=== PATIENT | female | born 1970 | race Caucasian/White ===

== ENCOUNTER 2022-02-16 12:01 | Emergency (ER) | payer BC, SELFPAY ==
[2022-02-16 12:14] VITALS: BP 144/106; PULSE 97; RESP 20; TEMP 36.7; O2SAT 96
--- NOTE | 2022-02-16 12:35 | W.ED.EXTPRO ---
HPI - Extremity Problem General: Chief complaint: Extremity Injury, Upper Stated complaint: Arm and should pain on left side Time Seen by Provider: 02/16/22 12:35 Source: patient Mode of arrival: ambulatory History of Present Illness: 51-year-old female presents to the emergency room with her . Evidently she recently traveled [facility] from [place]. She does not speak Malaysian. One of our nurses is [place] Citizen-speaking and provided translation for us. She has pain in the shoulder this has been ongoing for months. Pain is worse range of motion in the shoulder. She is taken [id number] medications for it with minimal relief MD Complaint: extremity pain Onset (ago): month(s) Pain Consistency: intermittent Location: left Quality: sharp Radiation: distal Relieving factors: rest Exacerbating factors: range of motion and palpation Associated symptoms: Deny arthralgias, chest pain, fever(s), myalgias, rash or short of breath Review of Systems Const: Denies: fever(s) or chills ENMT: Denies: throat pain, ear or mastoid pain, nasal discharge or nasal congestion Card: Denies: chest pain Resp: Denies: dyspnea, productive cough or non-productive cough GI: Denies: abdominal pain, nausea, vomiting, hematemesis, coffee ground emesis, diarrhea, constipation, bloating, hematochezia or melena : Denies: flank pain, difficulty voiding, dysuria, urinary frequency or urinary urgency Skin/Breast: Denies: rash or pruritus [facility] ED PFSH: Medical History (Updated 02/27/22 @ 08:02 by Adarsh Greenberg DO) No significant past medical history Surgical History (Updated 02/27/22 @ 08:02 by Adarsh Greenberg DO) No significant past surgical history Physical Exam Const: GENERAL APPEARANCE: cooperative and comfortable ORIENTATION/CONSCIOUSNESS: Yes awake, Yes oriented to person, Yes oriented to place and Yes oriented to time HENMT: COMMON NORMALS: normocephalic, atraumatic, hearing grossly normal bilaterally, external ears normal, EAC's normal, TM's normal bilaterally, Normal nasal mucous membranes and turbinates present, moist oral mucous membranes and oropharynx normal HEAD & SCALP: normocephalic and atraumatic NOSE: Normal nasal mucous membranes and turbinates present EXTERNAL EAR: Yes external ears normal EXTERNAL AUDITORY CANAL: EAC's normal TYMPANIC MEMBRANE: TM's normal bilaterally Eye: COMMON NORMALS: Equal, round and reactive pupils present, EOMs intact bilaterally, conjunctivae normal and no scleral icterus CONJUNCTIVA: Yes conjunctivae normal PUPIL: Yes Equal, round and reactive pupils present Neck/C-Spine: COMMON NORMALS: full ROM, no lymphadenopathy, supple and no JVD Resp: COMMON NORMALS: normal respiratory effort, No retractions, No use of accessory muscles and clear to auscultation bilaterally AUSCULTATION: clear to auscultation bilaterally Cardio: COMMON NORMALS: no JVD, regular rate, regular rhythm and No murmurs present (Cardio) RATE: regular rate RHYTHM: regular rhythm GI: COMMON NORMALS: Soft to palpation and No hepatosplenomegaly present AUSCULTATION: Yes normoactive bowel sounds PALPATION: Yes Soft to palpation, No Tenderness to palpation present (GI), No Guarding due to palpation present (GI) and Yes No hepatosplenomegaly present Extremity: COMMON NORMALS: normal to inspection, capillary refill normal, no clubbing, cyanosis or edema, no calf tenderness and no pedal edema OTHER: Neurovascular intact D10 reflexes +2/4 at biceps triceps and brachioradialis. Pain exacerbated by range of motion at the shoulder and at the neck with a negative Spurling sign Neuro: SENSORIUM/ORIENTATION: Yes oriented to person, Yes oriented to place and Yes oriented to time Skin: COMMON NORMALS: no rashes or lesions noted GENERAL SKIN EXAM: no rashes or lesions noted Course Vital Signs: Vital signs: Vital Signs Temperature 98.0 F 02/16/22 12:14 Pulse Rate 54 L 02/16/22 14:26 Respiratory Rate 16 02/16/22 14:26 Blood Pressure 130/81 02/16/22 14:26 Pulse Oximetry 97 02/16/22 14:26 Oxygen Delivery Me thod 02/16/22 12:14 MDM - Extremity (Nontraumatic) Medical Decision Making She describes the pain is radiating out of the neck down through the arm across the shoulder. Sounds mostly like a cervical radicular symptoms. We will put her on a prednisone burst and taper her Lyrica tizanidine and diclofenac as needed and set her up to see orthopedic spine surgery. Medical Records I reviewed the patient's medical records. Lab Data I reviewed the patient's lab results. Radiology Impressions Cervical Spine X-Ray 02/16/22 12:50 IMPRESSION: 1. No acute fracture or malalignment. 2. Straightening and degenerative changes. Shoulder X-Ray 02/16/22 12:50 IMPRESSION: Negative left shoulder. Discharge Plan Discharge Patient Disposition: Home Clinical Impression: Cervical radicular pain Condition: Stable Prescriptions: New hydrocodone-acetaminophen 5-325 mg tablet 1 tab PO Q6H PRN (Reason: pain) Qty: 10 0RF prednisone 20 mg tablet 20 mg PO TID Qty: 15 0RF Rx Instructions: 1 p.o. 3 times daily x3 days, 1 p.o. twice daily x2 days, 1 p.o. daily x2 days diclofenac sodium 75 mg tablet,delayed release (DR/EC) 75 mg PO Q12H PRN (Reason: pain) Qty: 20 0RF tizanidine 4 mg tablet 4 mg PO Q6H PRN (Reason: muscle spasticity) Qty: 20 0RF Rx Instructions: do not exceed 3 doses per 24 hrs Lyrica 75 mg capsule 75 mg PO BID Qty: 60 0RF Discharge Orders: Discharge ED (Routine); Ordered 02/16/22 Ordered By: Adarsh Greenberg Discharge Diet: Usual diet Discharge Activity: Limit activity as instructed Patient Instructions: Opioid Safety, Pain Management Activity Restrictions/Additional Instructions: Avoid heavy lifting minimal use of the left arm. No working above shoulder level. Case management make arrangements for an outpatient MRI and consultation with orthopedic surgery. Coding Level of Care Code ED Resident Program Specialist for [place]
--- NOTE | 2022-02-16 12:50 | XR_ITS ---
WS: [id number] Exam: XR shoulder LT min 2V* [id number] Date/Time of Exam: 02/16/2022 1:04 PM Reason For Exam: pain The projections of the shoulder reveal no fractures, anomalies, soft tissue swelling, or calcificatio ns. There is normal bony alignment. No irregularity of the bony architecture is noted. XR/XR shoulder LT min 2V* [id number] IMPRESSION: Negative left shoulder.
--- NOTE | 2022-02-16 12:50 | XR_ITS ---
WS: [id number] Exam: XR cervical spine 3V* [id number] Date/Time of Exam: 02/16/2022 1:04 PM Reason For Exam: pain No acute fracture or dislocation. There is straightening. Mild spondylosis from C4 to C6. Normal para spinal soft tissues. The odontoid is intact. XR/XR cervical spine 3V* [id number] IMPRESSION: 1. No acute fracture or malalignment. 2. Straightening and degenerative changes.
[2022-02-16 13:34] VITALS: RESP 16
[2022-02-16] MEDS: orphenadrine 30 mg/mL Inj 2 mL 60 MG IVP (13:34)
[2022-02-16] MEDS: morphine 4 mg/mL SDV 1 mL IVP (13:34)
[2022-02-16] MEDS: sodium chloride 0.9% (100 ml) 100 ML (13:34)
--- NOTE | 2022-02-16 13:34 | ECG_ITS ---
[facility] Test Date: 2022-02-16 Pat Name: Melva Colon Department: Room: Gender: Female Memorial Designer: : 1970 Requested By: Adarsh Jimenez Order Number: [id number] Reading MD: Nargis Harris M.D. Measurements Intervals [place] Rate: 52 P: 44 WI: 159 QRS: -52 QRSD: 101 T: 55 QT: 418 QTc: 392 Interpretive Statements SINUS BRADYCARDIA LEFT ANTERIOR FASCICULAR BLOCK [QRS AXIS <= -45, QR IN I, RS IN II] No previous ECG available for comparison Electronically Signed On 02-16-2022 22:53:30 CDT by Nargis Harris M.D. [id number]
[2022-02-16] MEDS: ketorolac 30 mg/mL INJ IVP (13:35)
[2022-02-16] MEDS: dexamethasone 10 mg/mL INJ IVP (13:35)
[2022-02-16 14:26] VITALS: BP 130/81; PULSE 54; RESP 16; O2SAT 97
--- NOTE | 2022-02-27 09:36 | DCPLANNER ---
Addendum entered by Shannan Montes 04/15/22 15:22: Patient had a follow up appointment scheduled with ortho - patient did attend appointment. Addendum entered by Shannan Montes 03/05/22 17:09: Patient has a follow up appointment scheduled for , March 12, 2022 at 10:[address] Cabrera at ortho. Clinic will call patient with appointment information. Original Note: condominium property manager had message to schedule a follow up appointment for patient with ortho. condominium property manager sent patients information to the front office staff at ortho. Patients information will be printed and reviewed. Clinic will call patient with appointment information.
== END 2022-02-16 14:35 | disposition home or self-care (01) ==
PROVIDERS: Emergency Provider Family Medicine
DX: M54.12 Radiculopathy, cervical region (principal)
CPT/HCPCS: 72040; 73030; 93005; 96361; 96374; 96375; 99284; J1100; J1885; J2270; J2360

== ENCOUNTER → 2022-03-12 09:19 | Outpatient (BNVA) | payer BC, SELFPAY | PROVIDERS: Referring Provider Family Medicine; Visit Provider Orthopaedic Surgery | DX: M47.22 Other spondylosis with radiculopathy, cervical region (principal) | CPT/HCPCS: 72040 ==

== ENCOUNTER 2022-05-08 10:47 | Outpatient (CLI) | payer BC, SELFPAY ==
--- NOTE | 2022-05-08 11:00 | MR_ITS ---
WS: [id number] MRI CERVICAL SPINE NONCONTRAST HISTORY: neck pain COMPARISON: 03/20/2022 Technique: Multiplanar, multisequence noncontrast imaging of the cervical spine. Straightening and slight reversal of the cervical spine. Reversal centered at C6. Signal within the cervical cord is normal. Visualized posterior fossa is unremarkable. Craniocervical junction, C1 and C2 relationship, odontoid process and soft tissues are normal. C2-C3: Normal. C3-C4: Small central disc protrusion and mild osteophytic ridging. Mild RIGHT foraminal stenosis. C4-C5: Normal. C5-C6: Mild annular disc bulging and osteophytic ridging. Slightly greater osteophyte in the RIGHT fo ramen. Very mild encroachment upon the ventral thecal sac and very small mild foraminal stenosis. C6-C7: Beginning posterior and to the LEFT of the C6 vertebral body and extending over length of 14 m m is either RIGHT disc protrusion or osteophyte encroaching upon the LEFT lateral thecal sac and prox imal foramen. This was also present on the prior study of 03/20/2022. Most significant contact is pro bably on the C7 nerve root. C7-T1: Normal. Paraspinal soft tissue are normal. MR/MR cervical spin wo con* [id number] IMPRESSION: 1. Focal area of stenosis and significant encroachment upon the C7 nerve root on the LEFT. There is significant contact on the LEFT cervical cord and foramin a at C6-7 with displacement of the nerve roots. This is either a disc extrusion which has migrated cephalad from the C6-7 disc level or opacification along th e posterior longitudinal ligament. Consider ossification of the posterior longi tudinal ligament. Very similar to the prior study from 03/20/2022. 2. Mild foraminal stenosis at C5-6. 3. Mild RIGHT foraminal stenosis at C3-4.
== END 2022-05-08 10:48 | disposition home or self-care (01) ==
LOC: RAD 10:51
PROVIDERS: PCP Family Medicine; Visit Provider Orthopaedic Surgery
DX: M48.02 Spinal stenosis, cervical region (principal)
CPT/HCPCS: 72141

== ENCOUNTER 2022-05-27 10:34 | Outpatient (CLI) | payer BC, SELFPAY ==
--- NOTE | 2022-05-27 10:57 | MR_ITS ---
WS: [id number] MRI NECK WITH CONTRAST TECHNIQUE: Noncontrast axial T1, axial T2 FSE fat sat, coronal T2 fat sat, coronal T1, coronal T1 fat sat, sagittal T2 fat sat, plus contrast enhanced coronal, sagittal, and axial T1 fat sat images obta ined. CLINICAL INFORMATION: CYST MUCOCELE OF NOSE NASAL SINUS/JAW PAIN COMPARISON: None. FINDINGS: Normal posterior nasopharynx. Normal parapharyngeal fat. Normal parotid glands and submandibular glan ds. Mild mucosal thickening ethmoid air cells. Mastoid air cells are well aerated. Normal posterior f claire. Normal vascular flow voids at the skull base. Tongue base appears normal. Dental artifact degrades images in the anterior mandible and maxilla. Evidence of prior postoperative changes partial RIGHT maxillary resection. No evidence of drainable fluid collection or abscess. No evidence of osteomyelitis considering limitations. Small shallow central protrusions C5-C6 and C6-C7 with slight effacement of the ventral thecal sac. Normal optic chiasm and pituitary infundibulum. No cervical lymphadenopathy. Visualized intracranial contents appear normal.No abnormal gadolinium enhancement. Normal pituitary enhancement. Normal patience nous sinuses and Meckel's cave. MR/MR orbit face neck wo/w* [id number] IMPRESSION: 1. Mild mucosal thickening ethmoid air cells. Mild mucosal thickening LEFT max illary sinus. Sphenoid sinuses are well aerated. Mastoid air cells well aerated . 2. Dental artifact degrades images in the maxilla and mandible. No evidence of drainable abscess or fluid collection. Evidence of prior RIGHT maxillary resec tion. No evidence of osteomyelitis. 3. Normal salivary glands. 4. No cervical lymphadenopathy. 5. No other suspicious findings. 6. Small disc protrusions in the cervical spine at C5-C6 and C6-C7 with slight effacement of ventral thecal sac. Cord signal is normal.
[2022-05-27] MEDS: gadobenate dimeglumine 20 mL vial IV (11:26)
== END 2022-05-27 10:35 | disposition home or self-care (01) ==
PROVIDERS: PCP Family Medicine; Visit Provider Specialist
DX: J34.1 Cyst and mucocele of nose and nasal sinus (principal)
CPT/HCPCS: 70543; A9577

== ENCOUNTER 2022-06-28 17:21 | Emergency (ER) | payer BC, SELFPAY ==
[2022-06-28 17:52] VITALS: BP 164/97; PULSE 76; RESP 16; TEMP 36.5; O2SAT 95; BMI 31.8
[2022-06-28 20:04] VITALS: BP 148/88; PULSE 60; RESP 12; O2SAT 98
--- NOTE | 2022-06-28 21:29 | W.ED.GENADLT ---
HPI - General Adult General: Chief complaint: General Medical Stated complaint: chills,sinus issues Time Seen by Provider: 06/28/22 21:02 Source: patient, family and irish moss bleacher (phone used as interpeter) History of Present Illness: 52-year-old female who presents with left maxillary sinus pain. The patient has chronic recurrent sinus infections related to a dental procedure that was done in [place] 1 year ago. There reportedly is a open passageway to the sinus that causes her to get recurrent infections. She finished clindamycin 2 days ago without improvement. She has been referred by her dentist to the oral maxillofacial surgeon in [place] but that appointment is not anytime soon. She presents today because of worsening pain. No fever. She is requesting ketoprofen and a stronger antibiotic. Review of Systems Narrative: see HPI [facility] ED PFSH: Medical History No significant past medical history Surgical History No significant past surgical history Social History (Updated 06/11/22 @ 09:14 by Yessica Rojas LPN) Smoking and tobacco status: current every day smoker e-cigarettes E-Cigarette Details: with nicotine E-cig/vape details: 2.5 Alcohol intake: never Physical Exam Const: OTHER: Patient is in mild distress due to the discomfort. HENMT: FACE & SINUS: Facial tenderness on exam of face and sinuses on the left maxilla TYMPANIC MEMBRANE: TM normal on the right and TM normal on the left TEETH & GINGIVA IMAGES: 1. [address] in the left upper maxilla 2. Tenderness in the maxillary ridge region. Neck/C-Spine: OTHER: Neck supple, no lymphadenopathy. Resp: OTHER: Patient is in no respiratory distress Neuro: OTHER: Alert and oriented, moves all extremities, speaks Argentine but phone irish moss bleacher used Course Vital Signs: Vital signs: Vital Signs Temperature 97.7 F 06/28/22 17:52 Pulse Rate 76 06/28/22 17:52 Respiratory Rate 16 06/28/22 17:52 Blood Pressure 164/97 06/28/22 17:52 Pulse Oximetry 95 06/28/22 17:52 Oxygen Delivery Me thod 06/28/22 17:52 [facility] - General Adult Medical Decision Making 52-year-old female with chronic recurrent left maxillary sinusitis due to a dental procedure. She is scheduled to see oral maxillofacial surgery in the near future. Just finished clindamycin. Ongoing pain and suspected ongoing infection. Patient's been given Levaquin 750 p.o. in the ER. She is also been given 60 mg of Toradol IM. Plan for discharge home on Levaquin 750 daily x10 days. I am also going to give her Toradol to take every 6 hours as needed for pain. I have encouraged her to follow-up as soon as possible with the oral maxillofacial surgeon. Discharge Plan Discharge Patient Disposition: Home Clinical Impression: Chronic maxillary sinusitis Condition: Stable Prescriptions: New levofloxacin 750 mg tablet 750 mg PO DAILY 10 Days Qty: 10 0RF ketorolac 10 mg tablet 10 mg PO Q6H PRN (Reason: pain) Qty: 40 0RF No Action diclofenac sodium 75 mg tablet,delayed release (DR/EC) 75 mg PO Q12H PRN (Reason: pain) Qty: 20 0RF tizanidine 4 mg tablet 4 mg PO Q6H PRN (Reason: muscle spasticity) Qty: 20 0RF Rx Instructions: do not exceed 3 doses per 24 hrs hydrocodone-acetaminophen 5-325 mg tablet 1 tab PO Q6H PRN (Reason: pain) 7 Days Qty: 40 0RF doxycycline hyclate 100 mg tablet,delayed release (DR/EC) 100 mg PO DAILY azithromycin 500 mg tablet 500 mg PO DAILY ibuprofen 200 mg tablet 200 mg PO Q6H PRN acetaminophen [Tylenol Extra Strength] 500 mg tablet 500 mg PO Q6H PRN Lyrica 75 mg capsule 75 mg PO BID Qty: 60 2RF tizanidine 4 mg tablet 4 mg PO BID PRN (Reason: muscle spasticity) Qty: 60 2RF Discharge Orders: Discharge ED (Routine); Ordered 06/28/22 Ordered By: Maral Pierce Referrals: Roberto Lomeli MD [Primary Care Provider] - Discharge Diet: Advance as tolerated Discharge Activity: Increase activity as tolerated Patient Instructions: Pain Management, Sinusitis - Chronic Activity Restrictions/Additional Instructions: Take the medications as prescribed. Make sure you take the ketorolac with food. Follow-up first available with the oral maxillofacial surgeon Coding Level of Care Code ED Furnace Combination Analyst for [place]
[2022-06-28] MEDS: ketorolac 60 mg/2 mL INJ IM (21:43)
[2022-06-28] MEDS: levoFLOXacin 750 mg Tablet PO (21:43)
== END 2022-06-28 22:03 | disposition home or self-care (01) ==
PROVIDERS: Emergency Provider Emergency Medicine; PCP Family Medicine
DX: J32.0 Chronic maxillary sinusitis (principal)
CPT/HCPCS: 96372; 99284; J1885

== ENCOUNTER 2022-07-04 21:40 | Emergency (ER) | payer BC, SELFPAY ==
[2022-07-04 21:47] VITALS: BP 177/96; PULSE 67; RESP 14; TEMP 36.4; O2SAT 97; BMI 31.8
--- NOTE | 2022-07-04 21:57 | W.ED.GENADLT ---
HPI - General Adult General: Chief complaint: General Medical Stated complaint: facial swelling, pain Time Seen by Provider: 07/04/22 21:48 Source: patient and family () Mode of arrival: ambulatory Limitations: language barrier History of Present Illness: Patient is a 52-year-old female who presents to the ED today along with her for evaluation of chronic left maxillary pain. There is certainly a language barrier present as patient does not speak any Moroccan nor does the speak much Trinidadian so most of the examination and history is performed using the help of interpretation apps on her phone. Essentially she tells me that several years ago she ended up having several dental extractions in [place] that became infected and spread into her left maxillary sinus. 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 She states since then she will get inflammation and edema in her sinuses and is often put on antibiotics for sinusitis. Patient states she has recently completed rounds of Clindamycin and Levaquin and still complains of pain. She was seen here at our facility about a week ago. Patient states after her discharge here she went to [facility] in [place] and was seen and had a CT facial bones with contrast which showed a discontinuity in the posterior wall of her left maxillary sinus that could represent chronic fracture. Patient states in the past she has had multiple evaluations for her symptoms including multiple ENT evaluations, oral maxillary surgery, neurology, etc. She has appointment with oral maxillary surgery later this month. Onset (ago): year(s) Location: face Severity: severe Quality: burning Pain Consistency: constant Relieving factors: none Exacerbating factors: other (chewing, palpation, talking) Associated symptoms: Reports no associated symptoms; Deny chest pain, dyspnea, headache(s) or malaise Review of Systems Const: Denies: fever(s), chills, body aches, fatigue or malaise Eyes: Denies: change in vision, blurry vision, photophobia, floaters or seeing flashes ENMT: Reports: sinus pain; Denies: throat pain, odynophagia, nasal discharge, nasal congestion or post nasal drip Card: Denies: chest pain Resp: Denies: dyspnea Musc: Denies: neck pain Neuro: Denies: headache(s) or dizziness PFS ED PFSH: Medical History No significant past medical history Surgical History No significant past surgical history Social History Smoking and tobacco status: current every day smoker e-cigarettes E-Cigarette Details: with nicotine E-cig/vape details: 2.5 Alcohol intake: never Female Reproductive History: Date of last menstrual period: 06/20/22 Physical Exam Const: COMMON NORMALS: no acute distress, average body habitus, patient oriented x3, no limitations, healthy appearing, alert and well nourished ORIENTATION/CONSCIOUSNESS: Yes awake, Yes oriented to person, Yes oriented to place and Yes oriented to time HENMT: COMMON NORMALS: normocephalic and atraumatic HEAD & SCALP: normal to inspection, normocephalic and atraumatic OTHER: Patient adamantly refuses to let me touch any portion of her face-she forcefully withdraws herself and then grabs my hand and tells me in Trinidadian that she will allow me to touch her due to pain. She refused any form of examination of her oral cavity as well. Eye: GENERAL EYE: appearance normal, both eyes and all related structures and normal light reflex DIRECT OPHTHALMOSCOPY: Yes normal light reflex Neck/C-Spine: COMMON NORMALS: full ROM GENERAL: Yes normal visual inspection, No anterior neck swelling and No submandibular swelling Resp: COMMON NORMALS: normal respiratory effort Neuro: ROMEO COMA SCALE: document GCS findings Romeo coma scale eye opening: Spontaneous [place] coma scale verbal response: Orientated Romeo coma scale motor response: Obey commands Romeo coma scale total score: 15 COMMON NORMALS: patient oriented x3, CN's II-XII intact bilaterally, moves all extremities, no focal motor deficits and no sensory deficits noted SENSORIUM/ORIENTATION: Yes alert, Yes oriented to person, Yes oriented to place and Yes oriented to time Course Vital Signs: Vital signs: Vital Signs Temperature 97.6 F 07/04/22 21:47 Pulse Rate 67 07/04/22 21:47 Respiratory Rate 14 07/04/22 21:47 Blood Pressure 177/96 07/04/22 21:47 Pulse Oximetry 97 07/04/22 21:47 Oxygen Delivery Me thod 07/04/22 21:47 [facility] - General Adult Medical Decision Making Just based on patient's history alone I do not know what else I can offer to her from an emergency department standpoint. It sounds like she has had a plethora of previous evaluations including multiple ENT evaluations, oral maxillary surgery, neurology. She tells me she has had multiple CT scans and MRIs. Based on her history I suspect some type of chronic osteomyelitis picture or possibly even possibly some type of nerve related damage from her previous surgeries. She adamantly refuses any form of physical exam here. She has an appointment with oral maxillary surgeon later this month. I recommend she keep this appointment. We will try steroids/NSAIDs as she is adamant she wants her inflammation treated. She is wanting more antibiotics as well. I think this is pointless given the fact that she has been on at least 3 rounds of antibiotics over the past month none of which has changed anything regarding her clinical picture. Discharge Plan Discharge Patient Disposition: Home Clinical Impression: Maxillary pain Condition: Stable Prescriptions: New prednisone 10 mg tablet 60 mg PO DAILY 5 Days Qty: 30 0RF diclofenac sodium 50 mg tablet,delayed release (DR/EC) 50 mg PO Q12H PRN (Reason: pain) Qty: 20 0RF hydrocodone-acetaminophen 7.5-325 mg tablet 1 tab PO Q8H PRN (Reason: pain) Qty: 14 0RF No Action diclofenac sodium 75 mg tablet,delayed release (DR/EC) 75 mg PO Q12H PRN (Reason: pain) Qty: 20 0RF tizanidine 4 mg tablet 4 mg PO Q6H PRN (Reason: muscle spasticity) Qty: 20 0RF Rx Instructions: do not exceed 3 doses per 24 hrs hydrocodone-acetaminophen 5-325 mg tablet 1 tab PO Q6H PRN (Reason: pain) 7 Days Qty: 40 0RF doxycycline hyclate 100 mg tablet,delayed release (DR/EC) 100 mg PO DAILY azithromycin 500 mg tablet 500 mg PO DAILY ibuprofen 200 mg tablet 200 mg PO Q6H PRN acetaminophen [Tylenol Extra Strength] 500 mg tablet 500 mg PO Q6H PRN Lyrica 75 mg capsule 75 mg PO BID Qty: 60 2RF tizanidine 4 mg tablet 4 mg PO BID PRN (Reason: muscle spasticity) Qty: 60 2RF levofloxacin 750 mg tablet 750 mg PO DAILY 10 Days Qty: 10 0RF ketorolac 10 mg tablet 10 mg PO Q6H PRN (Reason: pain) Qty: 40 0RF Discharge Orders: Discharge ED (Routine); Ordered 07/04/22 Ordered By: Alisa Chamberlain Referrals: Roberto Lomeli MD [Primary Care Provider] - Coding Level of Care Code ED Solar Sales Energy Advisor for Luis Alfredog Stanislav
[2022-07-04 23:00] VITALS: BP 144/84; PULSE 61; RESP 16; O2SAT 97
[2022-07-04] MEDS: morphine 4 mg/mL SDV 1 mL IM (23:05)
[2022-07-04 23:09] VITALS: BP 144/84; PULSE 61; RESP 16; O2SAT 97
== END 2022-07-04 23:10 | disposition home or self-care (01) ==
PROVIDERS: Emergency Provider Physician Assistant; PCP Family Medicine
DX: J34.89 Other specified disorders of nose and nasal sinuses (principal); F17.290 Nicotine dependence, other tobacco product, uncomplicated
CPT/HCPCS: 96372; 99284; J2270

== ENCOUNTER → 2022-11-12 12:59 | Outpatient (BNVA) | payer BC, SELFPAY | PROVIDERS: PCP Family Medicine; Visit Provider Registered Nurse Neonatal Intensive Care | DX: R30.0 Dysuria (principal); N89.8 Other specified noninflammatory disorders of vagina; B37.31 Acute candidiasis of vulva and vagina | CPT/HCPCS: 81000; 87491; 87591; 87661 ==

== ENCOUNTER → 2022-12-11 10:30 | Outpatient (BNVA) | payer BC, SELFPAY | PROVIDERS: PCP Family Medicine; Visit Provider Nurse Practitioner Women's Health | DX: Z12.4 Encounter for screening for malignant neoplasm of cervix (principal); Z01.419 Encounter for gynecological examination (general) (routine) without abnormal findings; N89.8 Other specified noninflammatory disorders of vagina | CPT/HCPCS: 87624 ==

== ENCOUNTER 2023-01-08 09:07 | Outpatient (CLI) | payer BC, SELFPAY ==
--- NOTE | 2023-01-08 09:15 | MM_ITS ---
WS: [id number] SCREENING DIGITAL TOMOSYNTHESIS MAMMOGRAM WITH CAD HISTORY: Z12.31 - Encounter for screening mammogram for malignant ... COMPARISON: None available. Bilateral CC and MLO with tomosynthesis views submitted. Synthetic mammography reviewed. Computer aid ed detection analyzed. Breast composition: The breasts are heterogeneously dense, which may obscure small masses. No suspici ous masses, microcalcifications or architectural distortion. IMPRESSION: MM/[place] [id number] BI-RADS: 1-Negative FOLLOW UP: 1 Year Follow-up
== END 2023-01-08 09:08 | disposition home or self-care (01) ==
PROVIDERS: PCP Family Medicine; Visit Provider Nurse Practitioner Women's Health
DX: Z12.31 Encounter for screening mammogram for malignant neoplasm of breast (principal)
CPT/HCPCS: 77063; 77067

== ENCOUNTER 2023-03-05 13:23 | Outpatient (CLI) | payer BC, SELFPAY ==
--- NOTE | 2023-03-05 13:30 | US_ITS ---
WS: [id number] US transvaginal [id number] HISTORY: R19.00 - Intra-abdominal and pelvic swelling, mass and fish... COMPARISON: None available. Uterus: 8.1 cm x 4.5 cm x 3.9 cm. Normal size anteverted uterus. No fibroid or mass. Endometrium: 0.3 cm. Normal. No increased vascularity and no mass. Right ovary: 2.7 cm x 2.9 cm x 1.4 cm. Normal size and vascularity, no cystic or solid masses. Left ovary: 2.6 cm x 1.6 cm x 2.0 cm. Ovaries normal size. There is a small follicle within the ovary measuring 1.2 x 1.0 x 0.6 cm. There is an additional hypoechoic mass which is similar echogenicity a s the ovary measuring 1.7 x 1.8 x 1.3 cm. Within the center of this hypoechoic mass or few areas of i ncreased echogenicity. There is no adjacent fluid. Tiny amount of free fluid in the cul-de-sac. IMPRESSION: 1. Normal endometrium. 2. Physiologic free fluid. 3. Solid nonvascular mass associated with the LEFT ovary measures 1.7 x 1.8 x 1.3 cm. Nonspecific in appearance at this time. This is not a simple cyst. There are a few echogenic foci present suggesting this could be a dermoid/teratoma. Thecoma or fibrothecoma also within the differential. Recommend fo llow-up transvaginal pelvic ultrasound evaluation in 3 to 4 months.
== END 2023-03-05 13:24 | disposition home or self-care (01) ==
PROVIDERS: PCP Family Medicine; Visit Provider Obstetrics & Gynecology
DX: R19.00 Intra-abdominal and pelvic swelling, mass and lump, unspecified site (principal); N83.9 Noninflammatory disorder of ovary, fallopian tube and broad ligament, unspecified
CPT/HCPCS: 76830

== ENCOUNTER 2023-03-09 14:47 | Outpatient (CLI) | payer BC, SELFPAY ==
--- NOTE | 2023-03-09 15:00 | US_ITS ---
WS: [id number] ULTRASOUND SOFT TISSUES LEFT perineum. HISTORY: Palpable area LEFT perineum. COMPARISON: None available. TECHNIQUE: 2-D and color Doppler imaging is submitted. There is a solid-appearing mass with variable echogenicity in the region of the LEFT perineum. Closel y associated with the LEFT labia. Mass measures 2.9 x 2.5 x 2.4 cm. There is an additional soft tissu e tract with similar echogenicity extending more medially towards the labia or vaginal canal. This tr act cannot be followed with ultrasound. There is no increased vascularity. IMPRESSION: Complex solid-appearing mass in the LEFT perineum with a tract extending towards the location of the vaginal canal. Differential includes neoplasm and a benign soft tissue collection. Complex Bartholin or skene gland. Less likely abscess as there is no increased vascularity and this appears more solid without cystic component. Surgical excision is recommended to exclude malignancy
== END 2023-03-09 14:48 | disposition home or self-care (01) ==
PROVIDERS: PCP Family Medicine; Visit Provider Obstetrics & Gynecology
DX: R19.00 Intra-abdominal and pelvic swelling, mass and lump, unspecified site (principal)
CPT/HCPCS: 76882

== ENCOUNTER 2023-03-13 23:39 | Emergency (ER) | payer BC, SELFPAY ==
[2023-03-14 00:11] VITALS: BP 131/84; PULSE 80; RESP 18; TEMP 36.6; O2SAT 98
[2023-03-14 02:13] LABS: Basophils # 0.1 10^3/uL (0.0-0.1); Basophils % 1.4 %; Eosinophils # 0.1 10^3/uL (0.0-0.8); Eosinophils % 1.5 %; Hematocrit 37.5 % (36-47); Lymphocytes # 2.3 10^3/uL (0.8-4.8); Lymphocytes % 32.6 %; Mean Corpuscular HGB Conc 31.2 g/dL (30-55); Mean Corpuscular Hemoglobin 26.3 pg (27-33); Mean Corpuscular Volume 84.3 fl (85-98); Mean Platelet Volume 9.8 fL (7.4-10.4); Monocytes # 0.4 10^3/uL (0.2-0.9); Neutrophils # 4.15 10^3/uL (1.8-7.7); Neutrophils % 58.4 %; Nucleated Red Blood Cells % 0 %; Platelet Count 290 10^3/cmm (157-399); Red Blood Count 4.45 10^6/uL (3.85-5.65); Red Cell Distribution Width 14.1 % (12.1-15.1); White Blood Count 7.12 10^3/uL (3.29-11.43)
[2023-03-14 02:18] LABS: HCG, Serum Qual Negative (Negative)
[2023-03-14 02:25] LABS: Alanine Aminotransferase 10 U/L (0-33); Albumin Level 4.3 g/dL (3.5-5.2); Alkaline Phosphatase 51 U/L (35-105); Anion Gap 11.9 (5-19); Aspartate Amino Transferase 11 U/L (0-32); Blood Urea Nitrogen 13 mg/dL (6-20); Calcium 9.5 mg/dL (8.5-10.5); Carbon Dioxide 27 mmol/L (22-29); Chloride 105 mmol/L (98-107); Globulin 2.9 g/dL (1.3-4.6); Glomerular Filtration Rate 88.2 mL/min (90-130); Glucose 104 mg/dL (65-115); Lipase 46 U/L (13-60); Osmolality Calculated 290 mOsm/kg (285-295); Potassium 3.9 mmol/L (3.5-5.1); Sodium 140 mmol/L (136-145); Total Bilirubin 0.2 mg/dL (0.15-1.2); Total Protein 7.2 g/dL (6.6-8.7)
[2023-03-14 02:27] LABS: Add Urine Microscopic? NO; Charge for UA Resulting for Rev
[2023-03-14 02:30] LABS: Bilirubin Urine Neg (Negative); Blood Urine Neg (Negative); Glucose Urine UA Norm (Normal); Ketones Urine Negative (Negative); Leukocyte Esterase Urine Negative (Negative); Nitrate Urine Negative (Negative); Protein Urine Neg (Negative); Specific Gravity, Urine 1.015 (1.005-1.030); Urine Appearance Clear (CLEAR); Urine Color Yellow (Yellow); Urobilinogen Urine Neg (Negative); pH Urine 5 (5-7)
[2023-03-14 02:55] LABS: Lactic Sepsis W/Reflex 0.6 mmol/L (0.5-2.2)
--- NOTE | 2023-03-14 03:10 | CTR_ITS ---
PROCEDURE INFORMATION: Exam: CT Abdomen And Pelvis With Contrast Exam date and time: 03/14/2023 3:20 AM Age: 52 years old Clinical indication: Abdominal pain; Localized; Right lower quadrant (rlq); Prior surgery; Surgery date: 6+ months; Surgery type: Gastric; Patient HX: Rlq pain TECHNIQUE: Imaging protocol: Computed tomography of the abdomen and pelvis with contrast. Radiation optimization: All CT scans at this facility use at least one of these dose optimization techniques: automated exposure control; mA and/or kV adjustment per patient size (includes targeted exams where dose is matched to clinical indication); or iterative reconstruction. Contrast material: OMNI 350; Contrast volume: 100 ml; Contrast route: INTRAVENOUS (IV); REPORTING DATA: Count of CT and Cardiac NM exams in prior 12 months: This patient has received 0 known CTs and 0 known cardiac nuclear medicine studies in the 12 months prior to the current study. COMPARISON: US transvaginal [id number] 03/05/2023 2:07 PM RADIATION DOSE METRICS: Total DLP (mGy-cm): 668.21 FINDINGS: Liver: Small hepatic cysts and additional subcentimeter hypodensities, which are too small to characterize. Gallbladder and bile ducts: No calcified stones. No biliary ductal dilation. No pericholecystic fluid. Pancreas: Unremarkable. No duct dilation. Spleen: Unremarkable. Adrenal glands: Unremarkable. Kidneys and ureters: No hydronephrosis or hydroureter. No renal or ureteral calculi. Stomach and bowel: Surgical changes of gastric sleeve. Scattered colonic diverticula without CT evidence of acute diverticulitis. Moderate colonic stool burden. No bowel obstruction. Appendix: Appendix is not definitely identified, however there is no CT evidence of right lower quadrant inflammatory process. Intraperitoneal space: Unremarkable. No free air. No significant fluid collection. Vasculature: No abdominal aortic aneurysm. Lymph nodes: No enlarged lymph nodes. Urinary bladder: Unremarkable as visualized. Reproductive: Small cystic lesion in the right pelvis, separate from the ovary, measures approximately 2.8 cm, may represent peritoneal inclusion cyst. Bones/joints: No acute fracture. No aggressive osseous lesions. Soft tissues: Partially imaged soft tissue density in the left perineum, better characterized on recent ultrasound. CT/CT abdomen pelvis w con* [id number] IMPRESSION: 1. No acute findings. 2. Partially imaged soft tissue density in the left perineum, better characterized on recent ultrasound.
[2023-03-14] MEDS: morphine 4 mg/mL SDV 1 mL IVP (03:30)
[2023-03-14] MEDS: ondansetron 2 mg/ML SDV 2 mL 4 MG IVP (03:30)
[2023-03-14] MEDS: iohexol 350 mg/mL 500 mL Btl (per mL) IV (03:32)
[2023-03-14 03:37] VITALS: BP 159/86; PULSE 59; RESP 16; O2SAT 98
--- NOTE | 2023-03-14 04:57 | ED_ITS ---
HPI - Abdominal Pain General: Chief Complaint: Abdominal Pain Stated Complaint: abdomen pain,n/v Time Seen by Provider: 03/14/23 02:56 History of Present Illness: 52-year-old female with a history of a recent diagnosis of a vaginal/perineal mass measuring an inch or so. She presents with abdominal pain that is more epigastric in nature. This started tonight. She had belching. Symptoms are somewhat improved. Pain was down to a 6 on arrival here from a 10 prior. No vomiting. No diarrhea. No blood in the stool. No vaginal discharge. Associated Symptoms: Reports nausea; Denies chills, diarrhea, dysuria, fever(s), hematochezia and vomiting Review of Systems Const: Denies: fever(s), chills or body aches Eyes: Denies: change in vision Card: Denies: chest pain or palpitations Resp: Denies: dyspnea, productive cough, non-productive cough or wheezing GI: Reports: abdominal pain and nausea; Denies: vomiting, diarrhea or hematochezia : Denies: difficulty voiding, dysuria, vaginal odor, vaginal bleeding or v aginal discharge Skin/Breast: Denies: rash Neuro: Denies: headache(s), weakness in extremities, dizziness or confusion Psych: Reports: anxiety PFSH ED PFSH: Medical History Hypertension situational Mass of sinus followed by [facility] -- has surgical procedure planned Dec 2022. No significant past medical history neghx: htn,dm,thyroid,dvt/pe PCP: [facility] Surgical History No significant past surgical history Family History Denies family history of Diabetes CAD (coronary artery disease) Clotting disorder Family history of premature coronary artery disease Cancer Hypertension Stroke Social History Smoking and tobacco/nicotine status: current every day tobacco/nicotine user e- cigarettes E-Cigarette Details: with nicotine E-cig/vape details: 2.5 Alcohol intake: never Substance/Drug Use: never Physical Exam Const: COMMON NORMALS: no acute distress GENERAL APPEARANCE: cooperative; not ill appearing and not frail appearing HENMT: COMMON NORMALS: normocephalic, atraumatic and Normal external nose present HEAD & SCALP: normocephalic and atraumatic FACE & SINUS: normal facial exam and face symmetric NOSE: Normal external nose present Eye: COMMON NORMALS: Equal, round and reactive pupils present and EOMs intact bilaterally PUPIL: Yes Equal, round and reactive pupils present Neck/C-Spine: GENERAL: Yes trachea midline Chest: CHEST: Yes Symmetrical chest wall rise Resp: COMMON NORMALS: normal respiratory effort, No retractions, No use of accessory muscles and clear to auscultation bilaterally AUSCULTATION: clear to auscultation bilaterally Cardio: COMMON NORMALS: regular rate and regular rhythm RATE: regular rate RHYTHM: regular rhythm GI: COMMON NORMALS: Normal to inspection, nondistended, normoactive bowel soun ds present PALPATION: Yes Tenderness to palpation present (GI) (epigastric, RLQ) Extremity: COMMON NORMALS: no pedal edema Neuro: ROMEO COMA SCALE: document GCS findings [place] coma scale eye opening: Spontaneous Romeo coma scale verbal response: Orientated Romeo coma scale motor response: Obey commands Romeo coma scale total score: 15 SEN ALESSIA EXAM: Yes extremities (intact) Psych: COMMON NORMALS: speech normal SPEECH: Yes normal speech Skin: COMMON NORMALS: no rashes or lesions noted GENERAL SKIN EXAM: no rashes or lesions noted Course Vital Signs: Vital signs: Vital Signs Temperature 97.8 F 03/14/23 05:44 Pulse Rate 73 03/14/23 05:44 Respiratory Rate 16 03/14/23 05:44 Blood Pressure 159/86 03/14/23 05:44 Pulse Oximetry 96 03/14/23 05:44 MDM - Abdominal Pain Medical Decision Making Patient was quite tender in her right lower quadrant, and epigastrium. History of the vaginal mass is in the left sided perineum. CBC is normal. BMP is normal. Liver enzymes are normal. Lactic acid is 0.6. CRP is 3. Urinalysis is negative. CT shows the same soft tissue density in the left perineum. She is improved after morphine here. CT does show moderate stool burden. We will treat this. The patient has a gynecology oncology appointment on Wednesday in [place] for follow-up with the mass. CD is printed for the patient to take to her appointment. Lab Data 03/14/23 01:40 03/14/23 01:40 Labs/Radiology: Radiology Impressions Abdomen/Pelvis CT 03/14/23 03:10 IMPRESSION: 1. No acute findings. 2. Partially imaged soft tissue density in the left perineum, better characterized on recent ultrasound. Laboratory Results WBC 7.12 10^3/uL (3.29-11.43) 03/14/23 01:40 RBC 4.45 10^6/uL (3.85-5.65) 03/14/23 01:40 Hgb 11.70 g/dL (11.27-16.99) 03/14/23 01:40 Hct 37.5 % (36-47) 03/14/23 01:40 MCV 84.3 fl (85-98) L 03/14/23 01:40 MCH 26.3 pg (27-33) L 03/14/23 01:40 MCHC 31.2 g/dL (30-55) 03/14/23 01:40 RDW 14.1 % (12.1-15.1) 03/14/23 01:40 Plt Count 290 10^3/cmm (157-399) 03/14/23 01:40 MPV 9.8 fL (7.4-10.4) 03/14/23 01:40 Neut % (Auto) 58.4 % 03/14/23 01:40 Lymph % (Auto) 32.6 % 03/14/23 01:40 [place] % (Auto) 6.0 % 03/14/23 01:40 Eos % (Auto) 1.5 % 03/14/23 01:40 Baso % (Auto) 1.4 % 03/14/23 01:40 Neut # (Auto) 4.15 10^3/uL (1.8-7.7) 03/14/23 01:40 Lymph # (Auto) 2.3 10^3/uL (0.8-4.8) 03/14/23 01:40 [place] # (Auto) 0.4 10^3/uL (0.2-0.9) 03/14/23 01:40 Eos # (Auto) 0.1 10^3/uL (0.0-0.8) 03/14/23 01:40 Baso # (Auto) 0.1 10^3/uL (0.0-0.1) 03/14/23 01:40 Nucleated RBC % (auto) 0 % 03/14/23 01:40 Nucleated RBCs # 0.0 /100WBC 03/14/23 01:40 Sodium 140 mmol/L (136-145) 03/14/23 01:40 Potassium 3.9 mmol/L (3.5-5.1) 03/14/23 01:40 Chloride 105 mmol/L (98-107) 03/14/23 01:40 Carbon Dioxide 27 mmol/L (22-29) 03/14/23 01:40 Anion Gap 11.9 (5-19) 03/14/23 01:40 BUN 13 mg/dL (6-20) 03/14/23 01:40 Creatinine 0.7 mg/dL (0.5-0.9) 03/14/23 01:40 GFR Calculation 88.2 mL/min (90-130) L 03/14/23 01:40 Glucose 104 mg/dL (65-115) 03/14/23 01:40 Calculated Osmolality 290 mOsm/kg (285-295) 03/14/23 01:40 Lactic Acid 0.6 mmol/L (0.5-2.2) 03/14/23 02:20 Calcium 9.5 mg/dL (8.5-10.5) 03/14/23 01:40 Total Bilirubin 0.2 mg/dL (0.15-1.2) 03/14/23 01:40 AST 11 U/L (0-32) 03/14/23 01:40 ALT 10 U/L (0-33) 03/14/23 01:40 Alkaline Phosphatase 51 U/L (35-105) 03/14/23 01:40 C-Reactive Protein 3.0 mg/L (0.0-4.9) 03/14/23 01:40 Total Protein 7.2 g/dL (6.6-8.7) 03/14/23 01:40 Albumin 4.3 g/dL (3.5-5.2) 03/14/23 01:40 Globulin 2.9 g/dL (1.3-4.6) 03/14/23 01:40 Lipase 46 U/L (13-60) 03/14/23 01:40 HCG, Qual Negative (Negative) 03/14/23 01:40 Urine Color Yellow (Yellow) 03/14/23 00:05 Urine Appearance Clear (CLEAR) 03/14/23 00:05 Urine pH 5 (5-7) 03/14/23 00:05 Ur Specific [place] 1.015 (1.005-1.030) 03/14/23 00:05 Urine Protein Neg (Negative) 03/14/23 00:05 Urine Glucose (UA) Norm (Normal) 03/14/23 00:05 Urine Ketones Negative (Negative) 03/14/23 00:05 Urine Blood Neg (Negative) 03/14/23 00:05 Urine Nitrate Negative (Negative) 03/14/23 00:05 Urine Bilirubin Neg (Negative) 03/14/23 00:05 Urine Urobilinogen Neg mg/dL (Negative) 03/14/23 00:05 Ur Leukocyte Esterase Negative (Negative) 03/14/23 00:05 All radiology interpretation(s) finalized by discharge Discharge Plan Discharge Patient Disposition: Home Clinical Impression: Constipation, Abdominal pain, Vaginal mass Condition: Stable Prescriptions: New hydrocodone-acetaminophen 5-325 mg tablet 1 tab PO Q8H PRN (Reason: pain) Qty: 7 0RF ondansetron 4 mg film 4 mg PO DAILY PRN (Reason: nausea and vomiting) Qty: 10 0RF No Action tramadol 50 mg tablet 50 mg PO Q6H estradiol [Estrace] 0.01 % (0.1 mg/gram) cream 1 g vaginal .2-3 times weekly Qty: 42.5 0RF Rx Instructions: space out doses metronidazole 500 mg tablet 500 mg PO BID Qty: 14 0RF azithromycin 250 mg tablet See Rx Instructions PO .COMPLEX Qty: 6 0RF Rx Instructions: take 500 mg today (day 1), then 250 mg for 4 days (days 2-5) PO Discharge Orders: Discharge ED (Routine); Ordered 03/14/23 Ordered By: Evan Austin Referrals: Roberto Lomeli MD [Primary Care Provider] - 4-7 days Patient Instructions: Abdominal Pain (ED), Opioid Safety, Pain Management Activity Restrictions/Additional Instructions: Follow-up with your gynecology oncology team on Wednesday as scheduled. Take the medication you were dispensed when you get home, and stay near a toilet for the next 12 hours. Return for fever, worsening pain despite treatment, vomiting liquids, other concerning symptoms. Coding Level of Care Code ED Non Destructive Evaluation Technician for [facility] [place]
[2023-03-14 05:01] VITALS: PULSE 73; RESP 16; O2SAT 96
[2023-03-14] MEDS: magnesium citrate Btl 296 mL PO (05:38)
[2023-03-14 05:44] VITALS: BP 159/86; PULSE 73; RESP 16; TEMP 36.6; O2SAT 96
== END 2023-03-14 05:44 | disposition home or self-care (01) ==
PROVIDERS: Emergency Provider Emergency Medicine; PCP Family Medicine
DX: K59.00 Constipation, unspecified (principal); N89.9 Noninflammatory disorder of vagina, unspecified; F17.290 Nicotine dependence, other tobacco product, uncomplicated; I10 Essential (primary) hypertension
CPT/HCPCS: 36415; 74177; 80053; 81003; 83605; 83690; 84703; 85025; 86140; 96374; 96375; 99285; J2270; J2405; Q9967

== ENCOUNTER 2023-03-15 20:19 | Emergency (ER) | payer BC, SELFPAY ==
[2023-03-15 20:41] VITALS: BP 136/87; PULSE 66; RESP 18; TEMP 36.7; O2SAT 97; BMI 34.7
[2023-03-15 21:41] LABS: Basophils # 0.1 10^3/uL (0.0-0.1); Basophils % 1.3 %; Eosinophils # 0.1 10^3/uL (0.0-0.8); Hematocrit 37.1 % (36-47); Lymphocytes # 2.7 10^3/uL (0.8-4.8); Lymphocytes % 39.3 %; Mean Corpuscular HGB Conc 30.5 g/dL (30-55); Mean Corpuscular Hemoglobin 26.1 pg (27-33); Mean Corpuscular Volume 85.7 fl (85-98); Mean Platelet Volume 9.5 fL (7.4-10.4); Monocytes # 0.5 10^3/uL (0.2-0.9); Neutrophils # 3.47 10^3/uL (1.8-7.7); Neutrophils % 50.3 %; Nucleated Red Blood Cells % 0 %; Platelet Count 275 10^3/cmm (157-399); Red Blood Count 4.33 10^6/uL (3.85-5.65); Red Cell Distribution Width 14.1 % (12.1-15.1)
[2023-03-15 22:02] LABS: Alanine Aminotransferase 6 U/L (0-33); Albumin Level 4.1 g/dL (3.5-5.2); Alkaline Phosphatase 51 U/L (35-105); Anion Gap 13.7 (5-19); Aspartate Amino Transferase 12 U/L (0-32); Blood Urea Nitrogen 17 mg/dL (6-20); Calcium 9.4 mg/dL (8.5-10.5); Carbon Dioxide 26 mmol/L (22-29); Chloride 101 mmol/L (98-107); Creatinine Clr Calc Pharmacy 93.1582; Globulin 3.2 g/dL (1.3-4.6); Glomerular Filtration Rate 88.2 mL/min (90-130); Glucose 98 mg/dL (65-115); Lipase 44 U/L (13-60); Osmolality Calculated 286 mOsm/kg (285-295); Potassium 3.7 mmol/L (3.5-5.1); Sodium 137 mmol/L (136-145); Total Bilirubin 0.2 mg/dL (0.15-1.2); Total Protein 7.3 g/dL (6.6-8.7)
[2023-03-16 00:21] VITALS: BP 123/86
[2023-03-16 00:33] LABS: Add Urine Microscopic? YES; Bilirubin Urine Neg (Negative); Blood Urine Neg (Negative); Glucose Urine UA Norm (Normal); Ketones Urine Negative (Negative); Leukocyte Esterase Urine 2+ (Negative); Nitrate Urine Negative (Negative); Protein Urine Neg (Negative); Urine Appearance SL Hazy (CLEAR); Urine Color Yellow (Yellow); Urobilinogen Urine Norm (Negative); pH Urine 5 (5-7)
[2023-03-16 00:34] LABS: Add Urine Culture? No; Bacteria Urine 1+ /hpf; Mucus Urine 2+ /hpf; RBC Urine 0-4 /hpf (0-2); Squamous Epithelial Cell Urine 15-25 /hpf (0-5); WBC Urine 15-25 /hpf (0-5)
--- NOTE | 2023-03-16 00:58 | W.ED.ABDPA2 ---
HPI - Abdominal Pain General: Chief Complaint: Abdominal Pain Stated Complaint: ABD Pain\Swelling Time Seen by Provider: 03/15/23 23:57 Limitations: language barrier History of Present Illness: patient presents to the ER with complaints of pain around her umbilicus. she was seen approximately 2 days ago through this ER and worked up with labs and imaging. Patient was sent home with a diagnosis of constipation, abdominal pain, vaginal mass, she was given mag citrate which did produce a good bowel movement. The pain is still there and there back for further evaluation since the pain did not go away. Patient states that she has no change in the pain with defecation or urination. Patient does state she has nausea for the last couple days and cannot keep any food or drink down. Review of Systems General: Reports: 10 or more systems reviewed and unremarkable except in HPI and below PFSH ED PFSH: Medical History Hypertension situational Mass of sinus followed by [facility] -- has surgical procedure planned Dec 2022. No significant past medical history neghx: htn,dm,thyroid,dvt/pe PCP: [facility] Surgical History No significant past surgical history Family History Denies family history of Diabetes CAD (coronary artery disease) Clotting disorder Family history of premature coronary artery disease Cancer Hypertension Stroke Social History Smoking and tobacco/nicotine status: current every day tobacco/nicotine user e-cigarettes E-Cigarette Details: with nicotine E-cig/vape details: 2.5 Alcohol intake: never Substance/Drug Use: never Physical Exam Const: COMMON NORMALS: no acute distress, average body habitus, patient oriented x3, no limitations, healthy appearing, alert and well nourished HENMT: COMMON NORMALS: normocephalic, atraumatic, hearing grossly normal bilaterally, external ears normal, Normal external nose present, moist oral mucous membranes and oropharynx normal HEAD & SCALP: normocephalic and atraumatic NOSE: Normal external nose present EXTERNAL EAR: Yes external ears normal Neck/C-Spine: COMMON NORMALS: no JVD Chest: COMMONS NORMALS: normal inspection of the chest and normal palpation of entire chest wall Resp: COMMON NORMALS: normal respiratory effort, No retractions, No use of accessory muscles and clear to auscultation bilaterally AUSCULTATION: clear to auscultation bilaterally Cardio: COMMON NORMALS: no JVD, regular rate, regular rhythm, S1 normal heart sound present, S2 normal heart sound present, No gallops present (Cardio), No clicks present (Cardio), No murmurs present (Cardio) and No rub (Cardio) RATE: regular rate RHYTHM: regular rhythm HEART SOUNDS: S1 normal heart sound present and S2 normal heart sound present GI: COMMON NORMALS: Normal to inspection, nondistended, normoactive bowel sounds present, Soft to palpation, No hepatosplenomegaly present and no masses; negative for non-tender ( Mildly tender to deep palpation on the right lower quadrant side of the u) PALPATION: Yes Soft to palpation and Yes No hepatosplenomegaly present Neuro: COMMON NORMALS: patient oriented x3 SENSORIUM/ORIENTATION: Yes alert Course Vital Signs: Vital signs: Vital Signs Temperature 98.1 F 03/15/23 20:41 Pulse Rate 62 03/16/23 01:07 Respiratory Rate 18 03/15/23 20:41 Blood Pressure 137/89 03/16/23 01:07 Pulse Oximetry 98 03/16/23 01:07 Oxygen Delivery Me thod Room Air 03/16/23 01:07 MDM - Abdominal Pain Medical Decision Making Patient presents to the ER with the same complaints that she did 2 days ago with abdominal pain workup was obtained included lab work and urinalysis we did not feel the need to repeat the CT the lab work was benign and her physical exam she had minimal tenderness on palpation. Patient be discharged home to keep her appointment later today but [place] as previously scheduled. Practice physician for further evaluation and treatment of her abdominal pain. Differential Diagnosis Likely abdominal pain; Unlikely acute appendicitis, calculus of kidney, constipation, diverticulitis, endometriosis, gastroenteritis, pancreatitis or small bowel obstruction Medical Records I reviewed the patient's medical records. Lab Data I reviewed the patient's lab results. 03/15/23 21:27 03/15/23 21:27 Labs/Radiology: Laboratory Results WBC 6.90 10^3/uL (3.29-11.43) 03/15/23 21:27 RBC 4.33 10^6/uL (3.85-5.65) 03/15/23: Hgb 11.30 g/dL (11.27-16.99) 03/15/23: Hct 37.1 % (36-47) 03/15/23: MCV 85.7 fl (85-98) 03/15/23: MCH 26.1 pg (27-33) L 03/15/23: MCHC 30.5 g/dL (30-55) 03/15/23: RDW 14.1 % (12.1-15.1) 03/15/23: Plt Count 275 10^3/cmm (157-399) 03/15/23: MPV 9.5 fL (7.4-10.4) 03/15/23: Neut % (Auto) 50.3 % 03/15/23: Lymph % (Auto) 39.3 % 03/15/23: [place] % (Auto) 7.0 % 03/15/23: Eos % (Auto) 2.0 % 03/15/23: Baso % (Auto) 1.3 % 03/15/23 Neut # (Auto) 3.47 10^3/uL (1.8-7.7) 03/15/23: Lymph # (Auto) 2.7 10^3/uL (0.8-4.8) 03/15/23: [place] # (Auto) 0.5 10^3/uL (0.2-0.9) 03/15/23: Eos # (Auto) 0.1 10^3/uL (0.0-0.8) 03/15/23: Baso # (Auto) 0.1 10^3/uL (0.0-0.1) 03/15/23: Nucleated RBC % (auto) 0 % 03/15/23: Nucleated RBCs # 0.0 /100WBC 03/15/23: Sodium 137 mmol/L (136-145) 03/15/23: Potassium 3.7 mmol/L (3.5-5.1) 03/15/23: Chloride 101 mmol/L (98-107) 03/15/23 21: Carbon Dioxide 26 mmol/L (22-29) 03/15/23: Anion Gap 13.7 (5-19) 03/15/23 21: BUN 17 mg/dL (6-20) 03/15/23 21: Creatinine 0.7 mg/dL (0.5-0.9) 03/15/23: GFR Calculation 88.2 mL/min (90-130) L 03/15/23: Glucose 98 mg/dL (65-115) 03/15/23: Calculated Osmolality 286 mOsm/kg (285-295) 03/15/23: Calcium 9.4 mg/dL (8.5-10.5) 03/15/23: Total Bilirubin 0.2 mg/dL (0.15-1.2) 03/15/23: AST 12 U/L (0-32) 03/15/23: ALT 6 U/L (0-33) 03/15/23: Alkaline Phosphatase 51 U/L (35-105) 03/15/23: C-Reactive Protein 3.0 mg/L (0.0-4.9) 03/15/23: Total Protein 7.3 g/dL (6.6-8.7) 03/15/23: Albumin 4.1 g/dL (3.5-5.2) 03/15/23: Globulin 3.2 g/dL (1.3-4.6) 03/15/23: Lipase 44 U/L (13-60) 03/15/23 21: Procalcitonin 0.02 ng/mL (0-0.5) 03/15/23: Urine Color Colorless (Yellow) 03/16/23 02:05 Urine Appearance Clear (CLEAR) 03/16/23 02:05 Urine pH 5 (5-7) 03/16/23 02:05 Ur Specific [place] 1.015 (1.005-1.030) 03/16/23 02:05 Urine Protein Neg (Negative) 03/16/23 02:05 Urine Glucose (UA) Norm (Normal) 03/16/23 02:05 Urine Ketones Negative (Negative) 03/16/23 02:05 Urine Blood Neg (Negative) 03/16/23 02:05 Urine Nitrate Negative (Negative) 03/16/23 02:05 Urine Bilirubin Neg (Negative) 03/16/23 02:05 Urine Urobilinogen Norm mg/dL (Negative) 03/16/23 02:05 Ur Leukocyte Esterase Negative (Negative) 03/16/23 02:05 Urine RBC 0-4 /hpf (0-2) H 03/16/23 00:24 Urine WBC 15-25 /hpf (0-5) H 03/16/23 00:24 Ur Squamous Epith Cells 15-25 /hpf (0-5) H 03/16/23 00:24 Amorphous Sediment Not Reportable 03/16/23 00:24 Urine Bacteria 1+ /hpf (NONE) H 03/16/23 00:24 Urine Mucus 2+ /hpf 03/16/23 00:24 No radiology studies performed this visit Discharge Plan Discharge Patient Disposition: Home Clinical Impression: Abdominal pain Qualifiers: Abdominal location: periumbilical Qualified Code(s): R10.33 - Periumbilical pain Condition: Stable Prescriptions: No Action tramadol 50 mg tablet 50 mg PO Q6H estradiol [Estrace] 0.01 % (0.1 mg/gram) cream 1 g vaginal .2-3 times weekly Qty: 42.5 0RF Rx Instructions: space out doses metronidazole 500 mg tablet 500 mg PO BID Qty: 14 0RF azithromycin 250 mg tablet See Rx Instructions PO .COMPLEX Qty: 6 0RF Rx Instructions: take 500 mg today (day 1), then 250 mg for 4 days (days 2-5) PO hydrocodone-acetaminophen 5-325 mg tablet 1 tab PO Q8H PRN (Reason: pain) Qty: 7 0RF ondansetron 4 mg film 4 mg PO DAILY PRN (Reason: nausea and vomiting) Qty: 10 0RF Discharge Orders: Discharge ED (Routine); Ordered 03/16/23 Ordered By: Mikal Coronado Referrals: Roberto Lomeli MD [Primary Care Provider] - 1 week Patient Instructions: Abdominal Pain (ED) Activity Restrictions/Additional Instructions: your lab work done in the ER today that included blood work and urinalysis was negative for acute causes of your abdominal pain. Your chart was reviewed from your visit 2 days ago that included a CT scan. Please follow-up with your family practice physician as you may need further evaluation testing such as referral to gastroenterology, an EGD or colonoscopy. These will need to be scheduled on an outpatient basis if your family practice doctor feels they are necessary. Coding Level of Care Code ED Personnel Analyst for [facility] [place]
[2023-03-16 01:03] LABS: Procalcitonin 0.02 ng/mL (0-0.5)
[2023-03-16 01:07] VITALS: BP 137/89; PULSE 62; O2SAT 98
[2023-03-16 02:10] LABS: Add Urine Microscopic? NO; Charge for UA Resulting for Rev
[2023-03-16 02:14] LABS: Bilirubin Urine Neg (Negative); Blood Urine Neg (Negative); Glucose Urine UA Norm (Normal); Ketones Urine Negative (Negative); Leukocyte Esterase Urine Negative (Negative); Nitrate Urine Negative (Negative); Protein Urine Neg (Negative); Specific Gravity, Urine 1.015 (1.005-1.030); Urine Appearance Clear (CLEAR); Urine Color Colorless (Yellow); Urobilinogen Urine Norm (Negative); pH Urine 5 (5-7)
[2023-03-16 02:41] VITALS: BP 137/89; PULSE 62; O2SAT 98
== END 2023-03-16 02:41 | disposition home or self-care (01) ==
PROVIDERS: Nurse Practitioner Family; Emergency Provider Emergency Medicine; PCP Family Medicine
DX: R10.33 Periumbilical pain (principal); I10 Essential (primary) hypertension; F17.290 Nicotine dependence, other tobacco product, uncomplicated
CPT/HCPCS: 36415; 80053; 81001; 81003; 83690; 84145; 85025; 86140; 99283

== ENCOUNTER 2023-03-25 15:13 | Emergency (ER) | payer BC, SELFPAY ==
[2023-03-25 15:26] VITALS: BP 148/100; PULSE 107; RESP 18; TEMP 36.6; O2SAT 99
--- NOTE | 2023-03-25 16:13 | ED_ITS ---
HPI - Abdominal Pain 2 General: Chief Complaint: Abdominal Pain Stated Complaint: abd pain,N Time Seen by Provider: 03/25/23 15:35 Source: patient Mode of arrival: ambulatory History of Present Illness: 52-year-old female presents emergency ro om complaining of lower abdominal pain for the last 3 weeks. She has been seen several times twice here once at [facility] she is also seen Dr. Lomeli he has her scheduled for an EGD and colonoscopy tomorrow. She has been taking dicyclomine she also has taken some omeprazole according to her . She denies any hematochezia melena hematemesis or coffee-ground emesis. She has previously had ultrasounds and CTs this is shown a vaginal mass which she has been referred to [facility] in [place] for further evaluation but she has not yet been there. She is also seeing Michelle regarding this locally. Her biggest issue today is just the abdominal pain when she describes mostly as supraumbilical and epigastric area she states its severe enough its making it difficult her for her to eat and drink. Patient does not speak Tunisian one of the ER nurses on staff today does speak Mohawk and translated for us at the patient's request. MD elicited complaint: abdominal pain Onset (ago): minute(s) Location: None Quality: cramping Exacerbating factors: nothing Relieving factors: nothing Associated Symptoms: Reports bloating, GI cramping, nausea and poor appetite; Denies anorexia, belching, change in bowel habits, change in stool character, chills, coffee ground emesis, constipation, diarrhea, dyspepsia, dysuria, excessive flatus, fever(s), heartburn, hematochezia, hematuria, hematemesis, fecal incontinence, loose stools, melena, syncope and vomiting Review of Systems 2 Const: Denies: fever(s) or chills Card: Denies: syncope Resp: Denies: dyspnea GI: Reports: nausea, bloating and GI cramping; Denies: vomiting, hematemesis, coffee ground emesis, heartburn, diarrhea, constipation, belching, excessive flatus, fecal incontinence, change in bowel habits, change in stool character, hematochezia or melena : Denies: dysuria or hematuria Musc: Denies: neck pain or back pain Skin/Breast: Denies: rash PFSH ED 2 PFSH: Medical History Hypertension situational Mass of sinus followed by [facility] -- has surgical procedure planned Dec 2022. No significant past medical history neghx: htn,dm,thyroid,dvt/pe PCP: Yani Surgical History No significant past surgical history Family History Denies family history of Diabetes CAD (coronary artery disease) Clotting disorder Family history of premature coronary artery disease Cancer Hypertension Stroke Social History Smoking and tobacco/nicotine status: current every day tobacco/nicotine user e- cigarettes E-Cigarette Details: with nicotine E-cig/vape details: 2.5 Alcohol intake: never Substance/Drug Use: never Physical Exam 2 Const: COMMON NORMALS: no acute distress GENERAL APPEARANCE: cooperative and comfortable ORIENTATION/CONSCIOUSNESS: Yes awake, Yes oriented to person, Yes oriented to place and Yes oriented to time HENMT: COMMON NORMALS: normocephalic, atraumatic and hearing grossly normal bilaterally HEAD & SCALP: normocephalic and atraumatic Resp: COMMON NORMALS: normal respiratory effort, No retractions, No use of accessory muscles and clear to auscultation bilaterally AUSCULTATION: clear to auscultation bilaterally Cardio: COMMON NORMALS: regular rate, regular rhythm and No murmurs present (Cardio) RATE: regular rate RHYTHM: regular rhythm GI: COMMON NORMALS: Soft to palpation and No hepatosplenomegaly present A USCULTATION: Yes normoactive bowel sounds PALPATION: Yes Soft to palpation, No Tenderness to palpation present (GI), No Guarding due to palpation present (GI) and Yes No hepatosplenomegaly present Extremity: COMMON NORMALS: normal to inspection, capillary refill normal, no clubbing, cyanosis or edema, no calf tenderness and no pedal edema Neuro: SENSORIUM/ORIENTATION: Yes oriented to person, Yes oriented to place and Yes oriented to time Skin: COMMON NORMALS: no rashes or lesions noted GENERAL SKIN EXAM: no rashes or lesions noted Course 2 Vital Signs: Vital signs: Vital Signs Temperature 97.9 F 03/25/23 15:26 Pulse Rate 75 03/25/23 17:25 Respiratory Rate 18 03/25/23 15:26 Blood Pressure 141/85 03/25/23 17:25 Pulse Oximetry 98 03/25/23 17:25 Oxygen Delivery Me thod Room Air 03/25/23 17:25 MDM - Abdominal Pain Medical Decision Making Labs and imaging reviewed Long discussion with patient and think some this may be reflux. She has previously had a gastric sleeve per her report and the findings on the CT. She did tell us that this incompetence did not want to share beyond conversations directly with caregivers. She has an EGD tomorrow. I contacted Dr. Lomeli made him aware of her previous surgery. She is relatively comfortable now we will start on pantoprazole give her still Carafate to use as needed. Long discussion with the patient and family including discussion of other possible functional etiologies such as reflux gastric ulcers, gastro biliary reflux or gastroparesis. Her previous gastric surgery is a potential cause of some of her symptoms as well. Medical Records I reviewed the patient's medical records. Lab Data I reviewed the patient's lab results. 03/25/23 16:15 03/25/23 16:22 Labs/Radiology: Radiology Impressions Abdomen/Pelvis CT 03/25/23 16:21 IMPRESSION: No acute findings. Laboratory Results WBC Cancelled 03/25/23 16:22 Corrected WBC Cancelled 03/25/23 16:22 RBC Cancelled 03/25/23 16:22 Hgb Cancelled 03/25/23 16:22 Hct Cancelled 03/25/23 16:22 MCV Cancelled 03/25/23 16:22 MCH Cancelled 03/25/23 16:22 MCHC Cancelled 03/25/23 16:22 RDW Cancelled 03/25/23 16:22 Plt Count Cancelled 03/25/23 16:22 MPV Cancelled 03/25/23 16:22 Gran % Cancelled 03/25/23 16:22 Neut % (Auto) Cancelled 03/25/23 16:22 Lymph % (Auto) Cancelled 03/25/23 16:22 [place] % (Auto) Cancelled 03/25/23 16:22 Eos % (Auto) Cancelled 03/25/23 16:22 Baso % (Auto) Cancelled 03/25/23 16:22 Neut # (Auto) Cancelled 03/25/23 16:22 Lymph # (Auto) Cancelled 03/25/23 16:22 [place] # (Auto) Cancelled 03/25/23 16:22 Eos # (Auto) Cancelled 03/25/23 16:22 Baso # (Auto) Cancelled 03/25/23 16:22 Absolute Gran (auto) Cancelled 03/25/23 16:22 Nucleated RBC % (auto) Cancelled 03/25/23 16:22 Nucleated RBCs # Cancelled 03/25/23 16:22 Sodium 142 mmol/L (136-145) 03/25/23 16:22 Potassium 4.2 mmol/L (3.5-5.1) 03/25/23 16:22 Chloride 106 mmol/L (98-107) 03/25/23 16:22 Carbon Dioxide 24 mmol/L (22-29) 03/25/23 16:22 Anion Gap 16.2 (5-19) 03/25/23 16:22 BUN 10 mg/dL (6-20) 03/25/23 16:22 Creatinine 0.7 mg/dL (0.5-0.9) 03/25/23 16:22 GFR Calculation 88.2 mL/min (90-130) L 03/25/23 16:22 Glucose 98 mg/dL (65-115) 03/25/23 16:22 Calculated Osmolality 293 mOsm/kg (285-295) 03/25/23 16:22 Calcium 9.6 mg/dL (8.5-10.5) 03/25/23 16:22 Magnesium 2.2 mg/dL (1.7-2.3) 03/25/23 16:22 Total Bilirubin 0.3 mg/dL (0.15-1.2) 03/25/23 16:22 AST 12 U/L (0-32) 03/25/23 16:22 ALT 8 U/L (0-33) 03/25/23 16:22 Alkaline Phosphatase 56 U/L (35-105) 03/25/23 16:22 Total Protein 7.6 g/dL (6.6-8.7) 03/25/23 16:22 Albumin 4.4 g/dL (3.5-5.2) 03/25/23 16:22 Globulin 3.2 g/dL (1.3-4.6) 03/25/23 16:22 Lipase 36 U/L (13-60) 03/25/23 16:22 Urine Color Yellow (Yellow) 03/25/23 16:00 Urine Appearance Clear (CLEAR) 03/25/23 16:00 Urine pH 6 (5-7) 03/25/23 16:00 Ur Specific [place] 1.010 (1.005-1.030) 03/25/23 16:00 Urine Protein Neg (Negative) 03/25/23 16:00 Urine Glucose (UA) Norm (Normal) 03/25/23 16:00 Urine Ketones Negative (Negative) 03/25/23 16:00 Urine Blood Neg (Negative) 03/25/23 16:00 Urine Nitrate Negative (Negative) 03/25/23 16:00 Urine Bilirubin Neg (Negative) 03/25/23 16:00 Urine Urobilinogen Norm mg/dL (Negative) 03/25/23 16:00 Ur Leukocyte Esterase Negative (Negative) 03/25/23 16:00 All radiology interpretation(s) finalized by discharge Discharge Plan Discharge Patient Disposition: Home Clinical Impression: Gastroesophageal reflux disease, Abdominal pain Condition: Stable Prescriptions: New Protonix 40 mg tablet,delayed release (DR/EC) 40 mg PO BID 14 Days Qty: 28 0RF Carafate 1 gram tablet 1 g PO Q6H PRN (Reason: stomach upset) 28 Days Qty: 112 0RF No Action tramadol 50 mg tablet 50 mg PO Q6H PRN (Reason: Pain) estradiol [Estrace] 0.01 % (0.1 mg/gram) cream 1 g vaginal .2-3 times weekly Qty: 42.5 0RF Rx Instructions: space out doses dicyclomine 20 mg tablet 20 mg PO QID PRN (Reason: Pain) Discharge Orders: Discharge ED (Routine); Ordered 03/25/23 Ordered By: Adarsh Greenberg Referrals: Roberto Lomeli MD [Primary Care Provider] - Discharge Diet: Usual diet Discharge Activity: Increase activity as tolerated Patient Instructions: Abdominal Pain (ED), Opioid Safety, Pain Management Activity Restrictions/Additional Instructions: Thank you for choosing [facility] for your healthcare needs today. Please realize this is an emergency room and that we are providing you with a medical screening exam and this may not be complete and all inclusive of all the testing and or work up that you may need to determine your ailment or severity of your illness. It is very important that you follow up as instructed or that you return to the Emergency Department should you have concerns or if your condition changes or worsens in any way. Keep your appointment Dr. Lomeli for endoscopy tomorrow start Protonix 1 pill twice daily for 14 days then go to once daily. Carafate 1 every 6 hours as needed Coding Level of Care Code ED Test Preparation Tutor for [place]
--- NOTE | 2023-03-25 16:21 | CTR_ITS ---
PROCEDURE INFORMATION: Exam: CT Abdomen And Pelvis Without Contrast Exam date and time: 03/25/2023 5:05 PM Age: 52 years old Clinical indication: Abdominal pain; Generalized TECHNIQUE: Imaging protocol: Computed tomography of the abdomen and pelvis without contrast. Radiation optimization: All CT scans at this facility use at least one of these dose optimization techniques: automated exposure control; mA and/or kV adjustment per patient size (includes targeted exams where dose is matched to clinical indication); or iterative reconstruction. REPORTING DATA: Count of CT and Cardiac NM exams in prior 12 months: This patient has received [address] and 0 known cardiac nuclear medicine studies in the 12 months prior to the current study. COMPARISON: CT abdomen pelvis w con* [id number] 03/14/2023 3:20 AM RADIATION DOSE METRICS: Total DLP (mGy-cm): 610 FINDINGS: Liver: Several subcentimeter low-attenuation lesions noted within the liver, likely small cysts. Gallbladder and bile ducts: Normal. No calcified stones. No ductal dilation. Pancreas: Normal. No ductal dilation. Spleen: Normal. No splenomegaly. Adrenal glands: Normal. No mass. Kidneys and ureters: Normal. No hydronephrosis. Stomach and bowel: Scattered colonic diverticulosis. Sequela of sleeve gastrectomy. No obstruction. No mucosal thickening. Appendix: No evidence of appendicitis. Intraperitoneal space: Unremarkable. No free air. No significant fluid collection. Vasculature: Unremarkable. No abdominal aortic aneurysm. Lymph nodes: Unremarkable. No enlarged lymph nodes. Urinary bladder: Unremarkable as visualized. Reproductive: Unremarkable as visualized. Bones/joints: No acute fracture. Soft tissues: Unremarkable. CT/CT abdomen pelvis con [id number] IMPRESSION: No acute findings.
[2023-03-25 16:35] VITALS: BP 159/107; PULSE 78; O2SAT 94
[2023-03-25 16:43] LABS: Add Urine Microscopic? NO; Charge for UA Resulting for Rev
[2023-03-25 16:51] LABS: Basophils % 0.5 %; Eosinophils # 0.1 10^3/uL (0.0-0.8); Eosinophils % 0.9 %; Hematocrit 37.7 % (36-47); Lymphocytes # 1.9 10^3/uL (0.8-4.8); Lymphocytes % 24.5 %; Mean Corpuscular HGB Conc 31.6 g/dL (30-55); Mean Corpuscular Hemoglobin 26.3 pg (27-33); Mean Corpuscular Volume 83.2 fl (85-98); Monocytes # 0.4 10^3/uL (0.2-0.9); Monocytes % 5.3 %; Neutrophils # 5.21 10^3/uL (1.8-7.7); Neutrophils % 68.7 %; Nucleated Red Blood Cells % 0 %; Platelet Count 296 10^3/cmm (157-399); Red Blood Count 4.53 10^6/uL (3.85-5.65); Red Cell Distribution Width 14.1 % (12.1-15.1); White Blood Count 7.59 10^3/uL (3.29-11.43)
[2023-03-25] MEDS: sodium chloride 0.9% 1,000 ML 999 ML IV (16:58)
[2023-03-25 17:05] LABS: Bilirubin Urine Neg (Negative); Blood Urine Neg (Negative); Glucose Urine UA Norm (Normal); Ketones Urine Negative (Negative); Leukocyte Esterase Urine Negative (Negative); Nitrate Urine Negative (Negative); Protein Urine Neg (Negative); Urine Appearance Clear (CLEAR); Urine Color Yellow (Yellow); Urobilinogen Urine Norm (Negative); pH Urine 6 (5-7)
[2023-03-25 17:08] LABS: Alanine Aminotransferase 8 U/L (0-33); Albumin Level 4.4 g/dL (3.5-5.2); Alkaline Phosphatase 56 U/L (35-105); Anion Gap 16.2 (5-19); Aspartate Amino Transferase 12 U/L (0-32); Blood Urea Nitrogen 10 mg/dL (6-20); Calcium 9.6 mg/dL (8.5-10.5); Carbon Dioxide 24 mmol/L (22-29); Chloride 106 mmol/L (98-107); Globulin 3.2 g/dL (1.3-4.6); Glomerular Filtration Rate 88.2 mL/min (90-130); Glucose 98 mg/dL (65-115); Lipase 36 U/L (13-60); Magnesium 2.2 mg/dL (1.7-2.3); Osmolality Calculated 293 mOsm/kg (285-295); Potassium 4.2 mmol/L (3.5-5.1); Sodium 142 mmol/L (136-145); Total Bilirubin 0.3 mg/dL (0.15-1.2); Total Protein 7.6 g/dL (6.6-8.7)
[2023-03-25] MEDS: lidocaine 2% viscous 15 ML, aluminum-mag hydrox-simethicon 30 ML, sucralfate oral liq 1 GM PO (17:21)
[2023-03-25 17:25] VITALS: BP 141/85; PULSE 75; O2SAT 98
[2023-03-25] MEDS: morphine 4 mg/mL SDV 1 mL 2 MG IVP (18:08)
[2023-03-25] MEDS: promethazine 25 mg/mL SDV 1 mL IM (18:09)
== END 2023-03-25 18:35 | disposition home or self-care (01) ==
PROVIDERS: Emergency Provider Family Medicine; PCP Family Medicine
DX: K21.9 Gastro-esophageal reflux disease without esophagitis (principal); F17.290 Nicotine dependence, other tobacco product, uncomplicated; I10 Essential (primary) hypertension
CPT/HCPCS: 74176; 80053; 81003; 83690; 83735; 85025; 96361; 96372; 96374; 99285; 99291; J2270; J2550; J7030

== ENCOUNTER 2023-04-23 07:15 | Day surgery (SDC) | payer BC, SELFPAY ==
--- NOTE | 2023-04-23 06:37 | W.PM.OPSUD ---
Surgery/Procedure H&P Update DATE OF PROCEDURE: April 23, 2023 DATE H&P PERFORMED: 04/08/23 H&P UPDATE INFORMATION: I have reviewed H&P completed within last 30 days, I have examined patient prior to procedure, No changes to prior documentation and H&P is in [facility] EMR on date indicated PLANNED PROCEDURE: Operation Date: 04/23/23 08:20 Proposed Procedures p 72951 colon G0121 screen colon a risk R10.31,R10.32,G89.29(Not Applicable) - Og Richter MD
[2023-04-23 07:27] VITALS: BMI 34.4
[2023-04-23 07:29] VITALS: BMI 34.4
[2023-04-23 07:32] VITALS: BP 130/102; PULSE 91; RESP 18; TEMP 36.5; O2SAT 96
[2023-04-23] MEDS: sodium chloride 0.9% 1,000 ML 30 ML IV (07:43)
--- NOTE | 2023-04-23 07:48 | P.ANESASSM_ITS ---
Pre-Anesthetic Assessment Height/Weight: Height 1.55 m Weight 82.554 kg Temp Pulse Resp BP Pulse Ox O2 Del Method 97.7 F 91 18 130/102 96 Room Air 04/23/23 07:32 04/23/23 07:32 04/23/23 07:32 04/23/23 07:32 04/23/23 07:32 04/23/23 07:32 Operation Date: 04/23/23 08:20 Proposed Procedures p 00586 colon G0121 screen colon a risk R10.31,R10.32,G89.29(Not Applicable) - Og Richter MD Familial anesthetic complications: None Was Beta Aniket taken within 24 hours: N/A Was Clonidine taken within 24 hours: N/A Last intake: Intake Last Liquid Date 04/22/23 Last Liquid Time 23:00 Last Solid Date 04/21/23 Social No alcohol and No tobacco vapes Exam alert, oriented x 3, clear to auscultation bilaterally and regular rate & rhythm Airway Mallampati: Class II Dentition: false CV/HEM Hypertension GI gastric sleeve Anesthetic Plan ASA status: 2 Anesthesia: MAC Risk of > 500 ml blood loss (7ml/kg in children): No Other Pertinent Information 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) Medications/Allergies Home Medications Medication Instructions Recorded Confirmed Last Taken Type tramadol 50 mg tablet 50 mg PO Q6H PRN Pain 11/12/22 04/23/23 04/22/23 History estradiol 0.01% (0.1 mg/gram) 1 g vaginal .2-3 times weekly 02/10/23 04/21/23 03/23/23 Rx vaginal cream (Estrace) #42.5 grams Allergies Allergy/AdvReac Type Severity Reaction Status Date / Time No Known Allergies Allergy Verified 04/08/23 14:25 Current Medications Generic Name Dose Route Start Last Admin Trade Name Freq PRN Reason Stop Dose Admin Sodium Chloride 1,000 mls @ 30 mls/hr 04/23/23 07:30 04/23/23 07:43 Sodium Chloride 0.9% IV 30 mls/hr .Q24H JASE Administration PFSH Anesthesia Medical History (Updated 04/10/23 @ 10:56 by Jesus Alberto Shook MD) Hypertension situational Ovarian mass, left Chronic bilateral lower abdominal pain Bradycardia by electrocardiogram 03/18/2022 ECG HR 52 Mass of sinus followed by [facility] -- has surgical procedure planned Dec 2022. No significant past medical history neghx: htn,dm,thyroid,dvt/pe PCP: Y[facility] Surgical History No significant past surgical history Family History Denies family history of Diabetes CAD (coronary artery disease) Clotting disorder Family history of premature coronary artery disease Cancer Hypertension Stroke Social History Smoking and tobacco/nicotine status: current every day tobacco/nicotine user e- cigarettes E-Cigarette Details: with nicotine E-cig/vape details: 2.5 Alcohol intake: never Substance/Drug Use: never Data Anesthesia Cardiac Studies: No Data to Display
--- NOTE | 2023-04-23 08:22 | PC.NURSE ---
[employer] Clinical Programmer services with ipad used for pre-op, positioning, and time out in room. Will use in discharge process as well.
[2023-04-23 08:44] VITALS: BP 95/69; PULSE 69; RESP 12; TEMP 36.1; O2SAT 98
[2023-04-23 08:51] VITALS: BP 110/74; PULSE 66; RESP 14; O2SAT 95
[2023-04-23 09:11] VITALS: BP 132/86; PULSE 60; RESP 16; O2SAT 97
[2023-04-23] MEDS: TRAMadol 50 mg Tablet PO (09:22)
--- NOTE | 2023-04-23 10:00 | ANE.PACU2 ---
Inpatient post-anesthesia follow up: Airway intact: Yes Vital signs: Temperature 97.0 F Pulse Rate 60 Respiratory Rate 16 Blood Pressure 132/86 Pulse Oximetry 97 Oxygen Delivery Me thod Room Air Oxygen Flow Rate Fraction of Inspir ed Oxygen Hydration adequate: Yes Nausea and vomiting: No Pain level: 1 Mental status: Baseline
== END 2023-04-23 10:02 | disposition home or self-care (01) ==
PROVIDERS: PCP Family Medicine Adult Medicine; Visit Provider Surgery
PROC: 0DJD8ZZ Inspection of Lower Intestinal Tract, Via Natural or Artificial Opening Endoscopic (ICD-10-PCS; CPT 45330; principal; 2023-04-23 08:20)
DX: R10.31 Right lower quadrant pain (principal); R10.32 Left lower quadrant pain; G89.29 Other chronic pain; K57.30 Diverticulosis of large intestine without perforation or abscess without bleeding; K63.5 Polyp of colon; I10 Essential (primary) hypertension; F17.290 Nicotine dependence, other tobacco product, uncomplicated
CPT/HCPCS: 45338; 88305; J2704; J7030

== ENCOUNTER 2023-06-10 21:59 | Emergency (ER) | payer BC, SELFPAY ==
[2023-06-10 22:07] VITALS: BP 174/96; PULSE 78; RESP 16; TEMP 36.4; O2SAT 99
--- NOTE | 2023-06-10 22:11 | XRR_ITS ---
PROCEDURE INFORMATION: Exam: XR Chest Exam date and time: 06/10/2023 10:23 PM Age: 52 years old Clinical indication: Chest wall pain; Additional info: Cxp TECHNIQUE: Imaging protocol: Radiologic exam of the chest. Views: 1 view. COMPARISON: CT abdomen pelvis con [id number] 03/25/2023 5:05 PM FINDINGS: Lungs: Unremarkable. No consolidation. Pleural spaces: Unremarkable. No pleural effusion. No pneumothorax. Heart/Mediastinum: Unremarkable. No cardiomegaly. Bones/joints: Unremarkable. XR/XR chest 1V portable [id number] IMPRESSION: No acute findings.
--- NOTE | 2023-06-10 22:11 | ECG_ITS ---
[facility] Test Date: 2023-06-10 Pat Name: Melva Colon Department: Room: Gender: Female Informaticist: : 1970 Requested By: James Irwin Order Number: [id number] Ottoniel MD: Dexter Zimmer M.D. Measurements Intervals [place] Rate: 90 P: 35 WA: 191 QRS: -72 QRSD: 100 T: 31 QT: 356 QTc: 436 Interpretive Statements SINUS RHYTHM PATTERN CONSISTENT WITH PULMONARY DISEASE INCOMPLETE RIGHT BUNDLE BRANCH BLOCK [90+ ms QRS DURATION, TERMINAL R IN V1/V2, 40+ ms S IN I/aVL/V4/V5/V6] LEFT ANTERIOR FASCICULAR BLOCK [QRS AXIS <= -45, QR IN I, RS IN II] Compared to ECG 02/16/2022 13:34:37 Incomplete right bundle-branch block now present Sinus bradycardia no longer present Electronically Signed On 06-11-2023 10:00:25 [employer]SEMBLER by Dexter Zimmer M.D. [email or web address]
--- NOTE | 2023-06-10 22:11 | W.ED.CHESTPA ---
HPI - Chest Pain General: Chief Complaint: Chest Pain Stated Complaint: cp Time Seen by Provider: 06/10/23 22:11 History of Present Illness: 52-year-old female who is only Senegalese-speaking presents to the emergency department with her who is translating. The states that she felt like she had a chest pain to her left chest muscle. She did have a muscle spasm while we were examining the patient and stated that this was the cause of her chest pain. She denies shortness of breath dizziness or lightheaded feeling. She denies nausea or vomiting. She states that she has been evaluated several times for gastric problems but have not found any existing problems. Review of Systems General: Reports: 10 or more systems reviewed and unremarkable except in HPI and below Card: Reports: chest pain REPLACED BY [facility] ED PFSH: Medical History (Updated 06/11/23 @ 01:10 by James Irwin MD) Hypothyroidism Hypertension situational Ovarian mass, left Chronic bilateral lower abdominal pain Bradycardia by electrocardiogram 03/18/2022 ECG HR 52 Mass of sinus followed by [facility] -- has surgical procedure planned Dec 2022. No significant past medical history neghx: htn,dm,thyroid,dvt/pe PCP: [facility] Surgical History No significant past surgical history Family History Denies family history of Diabetes CAD (coronary artery disease) Clotting disorder Family history of premature coronary artery disease Cancer Hypertension Stroke Social History Smoking and tobacco/nicotine status: current every day tobacco/nicotine user e-cigarettes E-Cigarette Details: with nicotine E-cig/vape details: 2.5 Alcohol intake: never Substance/Drug Use: never Physical Exam Narrative: EXAM NARRATIVE: Constitutional: the patient appears well nourished and of normal development. Vital signs as documented. No acute distress at present. Alert and oriented-to person, place, time and situation. Head, eyes, ears, nose, mouth, throat: Normocephalic, atraumatic. Pupils-equal, round, reactive to light. No scleral icterus. Normal-appearing external ears. Normal appearing nasal turbinates, no drainage. No obvious oral lesions, posterior oropharynx without erythema or exudates. Neck: Supple, trachea is midline, no lymphadenopathy, no jugular venous distension, thyromegaly, or carotid bruits. Carotid upstrokes are brisk bilaterally. Lungs: clear to auscultation to all lung alcazar. Symmetrical rise and fall of chest, no obvious signs of increased work of breathing at present. Cardiac: Regular rate and rhythm, positive S1, S2. No murmurs, rubs or gallops that I can appreciate Abdomen: Soft, non-tender to palpation, normal active bowel sounds to all quadrants. No palpable masses, no organomegaly and abdominal bruits. Extremities: 2+ pulses in the upper extremities that are equal bilaterally, 2+ pulses in the lower extremities that are equal bilaterally. Non-edematous. Moves all extremities well, sensation to all extremities are noted. Skin: Warm, dry, intact. Course Vital Signs: Vital signs: Vital Signs Temperature 97.6 F 06/10/23 22:07 Pulse Rate 78 06/10/23 22:07 Respiratory Rate 16 06/10/23 22:07 Blood Pressure 174/96 06/10/23 22:07 Pulse Oximetry 99 06/10/23 22:07 MDM - Chest Pain Medical Decision Making Physical exam completed and documented, I will obtain serial cardiac enzymes, serial twelve-lead EKGs, chest x-ray, CBC, CMP, urinalysis, B-type natriuretic peptide, PT/PTT/INR, and a chest x-ray. I will provide cardiac dose aspirin and nitroglycerin administration. I have reviewed previous and pertinent medical records for assist in obtaining beneficial medical information to improved the care and treatment of the patient. Medical Records I reviewed the patient's medical records. Lab Data I reviewed the patient's lab results. 06/10/23 22:16 06/10/23 22:16 Radiology Impressions Chest X-Ray 06/10/23 22:11 IMPRESSION: No acute findings. Laboratory Results WBC 10.69 10^3/uL (3.29-11.43) 06/10/23 22:16 RBC 4.16 10^6/uL (3.85-5.65) 06/10/23 22:16 Hgb 10.50 g/dL (11.27-16.99) L 06/10/23 22:16 Hct 33.8 % (36-47) L 06/10/23 22:16 MCV 81.3 fl (85-98) L 06/10/23 22:16 MCH 25.2 pg (27-33) L 06/10/23 22:16 MCHC 31.1 g/dL (30-55) 06/10/23 22:16 RDW 14.5 % (12.1-15.1) 06/10/23 22:16 Plt Count 293 10^3/cmm (157-399) 06/10/23 22:16 MPV 9.5 fL (7.4-10.4) 06/10/23 22:16 Neut % (Auto) 65.0 % 06/10/23 22:16 Lymph % (Auto) 25.9 % 06/10/23 22:16 [place] % (Auto) 6.8 % 06/10/23 22:16 Eos % (Auto) 1.3 % 06/10/23 22:16 Baso % (Auto) 0.7 % 06/10/23 22:16 Neut # (Auto) 6.94 10^3/uL (1.8-7.7) 06/10/23 22:16 Lymph # (Auto) 2.8 10^3/uL (0.8-4.8) 06/10/23 22:16 [place] # (Auto) 0.7 10^3/uL (0.2-0.9) 06/10/23 22:16 Eos # (Auto) 0.1 10^3/uL (0.0-0.8) 06/10/23 22:16 Baso # (Auto) 0.1 10^3/uL (0.0-0.1) 06/10/23 22:16 Nucleated RBC % (auto) 0 % 06/10/23 22:16 Nucleated RBCs # 0.0 /100WBC 06/10/23 22:16 PT 13.80 SECONDS (12.1-14.9) 06/10/23 22:16 INR 1.03 (0.8-1.2) 06/10/23 22:16 APTT 28.7 SECONDS (23.9-36.7) 06/10/23 22:16 Sodium 138 mmol/L (136-145) 06/10/23 22:16 Potassium 3.3 mmol/L (3.5-5.1) L 06/10/23 22:16 Chloride 103 mmol/L (98-107) 06/10/23 22:16 Carbon Dioxide 24 mmol/L (22-29) 06/10/23 22:16 Anion Gap 14.3 (5-19) 06/10/23 22:16 BUN 15 mg/dL (6-20) 06/10/23 22:16 Creatinine 0.6 mg/dL (0.5-0.9) 06/10/23 22:16 GFR Calculation 105.4 mL/min (90-130) 06/10/23 22:16 Glucose 84 mg/dL (65-115) 06/10/23 22:16 Calculated Osmolality 286 mOsm/kg (285-295) 06/10/23 22:16 Calcium 8.7 mg/dL (8.5-10.5) 06/10/23 22:16 Total Bilirubin 0.2 mg/dL (0.15-1.2) 06/10/23 22:16 AST 10 U/L (0-32) 06/10/23 22:16 ALT 6 U/L (0-33) 06/10/23 22:16 Alkaline Phosphatase 51 U/L (35-105) 06/10/23 22:16 Troponin T Baseline < 6 ng/L (0-10) 06/10/23 22:16 Troponin T 120 Minute 6.00 ng/L (0-10) 06/11/23 00:38 Delta Troponin T 0.31592 ABS# (0-10) 06/11/23 00:38 NT-Pro-B Natriuret Pep < 36 pg/mL (0-125) 06/10/23 22:16 Total Protein 7.2 g/dL (6.6-8.7) 06/10/23 22:16 Albumin 4.1 g/dL (3.5-5.2) 06/10/23 22:16 Globulin 3.1 g/dL (1.3-4.6) 06/10/23 22:16 All radiology interpretation(s) finalized by discharge Discharge Plan Discharge Patient Disposition: Home Clinical Impression: Atypical chest pain, Acute hypokalemia Condition: Stable Prescriptions: No Action tramadol 50 mg tablet 50 mg PO Q6H PRN (Reason: Pain) estradiol [Estrace] 0.01 % (0.1 mg/gram) cream 1 g vaginal .2-3 times weekly Qty: 42.5 0RF Rx Instructions: space out doses dicyclomine 10 mg capsule 10 mg PO BID Linzess 145 mcg capsule 145 mcg PO DAILY lisinopril 5 mg tablet 5 mg PO DAILY Qty: 30 5RF levothyroxine 100 mcg capsule 100 mcg PO DAILY Qty: 30 1RF Discharge Orders: Discharge ED (Routine); Ordered 06/11/23 Ordered By: James Irwin Referrals: Jesus Alberto Shook MD [Primary Care Provider] - Discharge Diet: Low Salt Discharge Activity: Resume usual activity Patient Instructions: Opioid Safety, Pain Management Activity Restrictions/Additional Instructions: Activity Restrictions/Additional Instructions: Thank you for choosing [facility] for your healthcare needs today. Please realize that you were seen in the Emergency Department and that we are providing you with an emergency medical screening exam and this may not be a complete and all inclusive of all the testing and or medical work-up that you may need to determine your ailment or severity of your illness. It is very important that you follow-up as instructed with your Primary care provider or Specialist for additional evaluation and to discuss your medical treatment plan. Coding Level of Care Code ED Bulking Machine Operator for [facility] [place]
[2023-06-10 22:21] LABS: Basophils # 0.1 10^3/uL (0.0-0.1); Basophils % 0.7 %; Eosinophils # 0.1 10^3/uL (0.0-0.8); Eosinophils % 1.3 %; Hematocrit 33.8 % (36-47); Lymphocytes # 2.8 10^3/uL (0.8-4.8); Lymphocytes % 25.9 %; Mean Corpuscular HGB Conc 31.1 g/dL (30-55); Mean Corpuscular Hemoglobin 25.2 pg (27-33); Mean Corpuscular Volume 81.3 fl (85-98); Mean Platelet Volume 9.5 fL (7.4-10.4); Monocytes # 0.7 10^3/uL (0.2-0.9); Monocytes % 6.8 %; Neutrophils # 6.94 10^3/uL (1.8-7.7); Nucleated Red Blood Cells % 0 %; Platelet Count 293 10^3/cmm (157-399); Red Blood Count 4.16 10^6/uL (3.85-5.65); Red Cell Distribution Width 14.5 % (12.1-15.1); White Blood Count 10.69 10^3/uL (3.29-11.43)
[2023-06-10] MEDS: aspirin 81 mg Chew Tablet 324 MG PO (22:27)
[2023-06-10] MEDS: nitroglycerin 1 gm/inch oint Pkt 1 INCH TOPICAL (22:28)
[2023-06-10] MEDS: nitroglycerin 0.4 mg sublingual Tablet SUBLINGUAL (22:28)
[2023-06-10 22:34] LABS: INR 1.03 (0.8-1.2); Partial Thromboplastin Time 28.7 SECONDS (23.9-36.7)
[2023-06-10 22:44] LABS: Troponin(5th) Baseline < 6 ng/L (0-10)
[2023-06-10 22:52] LABS: Alanine Aminotransferase 6 U/L (0-33); Albumin Level 4.1 g/dL (3.5-5.2); Alkaline Phosphatase 51 U/L (35-105); Anion Gap 14.3 (5-19); Aspartate Amino Transferase 10 U/L (0-32); Blood Urea Nitrogen 15 mg/dL (6-20); Calcium 8.7 mg/dL (8.5-10.5); Carbon Dioxide 24 mmol/L (22-29); Chloride 103 mmol/L (98-107); Globulin 3.1 g/dL (1.3-4.6); Glomerular Filtration Rate 105.4 mL/min (90-130); Glucose 84 mg/dL (65-115); NT Pro B Type Natriuretic Pept < 36 pg/mL (0-125); Osmolality Calculated 286 mOsm/kg (285-295); Potassium 3.3 mmol/L (3.5-5.1); Sodium 138 mmol/L (136-145); Total Bilirubin 0.2 mg/dL (0.15-1.2); Total Protein 7.2 g/dL (6.6-8.7)
[2023-06-11 01:04] LABS: Troponin 5 2HR Delta 0.00001 ABS# (0-10)
[2023-06-11 01:26] VITALS: BP 120/65; PULSE 78; RESP 18; O2SAT 98
== END 2023-06-11 01:28 | disposition home or self-care (01) ==
PROVIDERS: Emergency Provider Internal Medicine; PCP Family Medicine Adult Medicine
DX: R07.89 Other chest pain (principal); E87.6 Hypokalemia; F17.290 Nicotine dependence, other tobacco product, uncomplicated; I10 Essential (primary) hypertension
CPT/HCPCS: 71045; 80053; 83880; 84484; 85025; 85610; 85730; 93005; 99285

== ENCOUNTER → 2023-06-16 10:48 | Outpatient (BNVA) | payer BC, SELFPAY | PROVIDERS: PCP Family Medicine Adult Medicine; Visit Provider Family Medicine Adult Medicine | DX: E03.9 Hypothyroidism, unspecified (principal); R10.9 Unspecified abdominal pain | CPT/HCPCS: 84439; 84443; 86618; 86666; 86757 ==

== ENCOUNTER 2023-07-01 13:25 | Emergency (ER) | payer BC, SELFPAY ==
[2023-07-01 13:41] VITALS: BP 134/91; PULSE 89; RESP 16; TEMP 36.4; O2SAT 96; BMI 34.9
[2023-07-01 14:44] LABS: Basophils # 0.1 10^3/uL (0.0-0.1); Basophils % 1.2 %; Eosinophils # 0.1 10^3/uL (0.0-0.8); Eosinophils % 1.1 %; Hematocrit 34.1 % (36-47); Lymphocytes # 1.7 10^3/uL (0.8-4.8); Lymphocytes % 22.3 %; Mean Corpuscular HGB Conc 31.7 g/dL (30-55); Mean Corpuscular Hemoglobin 25.2 pg (27-33); Mean Corpuscular Volume 79.7 fl (85-98); Mean Platelet Volume 9.8 fL (7.4-10.4); Monocytes # 0.5 10^3/uL (0.2-0.9); Monocytes % 7.1 %; Neutrophils # 5.06 10^3/uL (1.8-7.7); Nucleated Red Blood Cells % 0 %; Platelet Count 357 10^3/cmm (157-399); Red Blood Count 4.28 10^6/uL (3.85-5.65); Red Cell Distribution Width 14.8 % (12.1-15.1); White Blood Count 7.44 10^3/uL (3.29-11.43)
[2023-07-01 15:06] LABS: Alanine Aminotransferase 8 U/L (0-33); Albumin Level 4.2 g/dL (3.5-5.2); Alkaline Phosphatase 55 U/L (35-105); Anion Gap 16.3 (5-19); Aspartate Amino Transferase 12 U/L (0-32); Blood Urea Nitrogen 12 mg/dL (6-20); Calcium 8.7 mg/dL (8.5-10.5); Carbon Dioxide 23 mmol/L (22-29); Chloride 104 mmol/L (98-107); Creatinine Clr Calc Pharmacy 107.7778; Globulin 3.5 g/dL (1.3-4.6); Glucose 100 mg/dL (65-115); Lipase 35 U/L (13-60); Osmolality Calculated 288 mOsm/kg (285-295); Potassium 4.3 mmol/L (3.5-5.1); Sodium 139 mmol/L (136-145); Total Bilirubin 0.2 mg/dL (0.15-1.2); Total Protein 7.7 g/dL (6.6-8.7)
[2023-07-01 15:16] LABS: Add Urine Microscopic? YES; Bilirubin Urine Neg (Negative); Blood Urine Trace (Negative); Glucose Urine UA Norm (Normal); Ketones Urine 1+ (Negative); Leukocyte Esterase Urine Trace (Negative); Nitrate Urine Negative (Negative); Protein Urine 1+ (Negative); Specific Gravity, Urine 1.005 (1.005-1.030); Urine Appearance SL Hazy (CLEAR); Urine Color Yellow (Yellow); Urobilinogen Urine Norm (Negative); pH Urine 7 (5-7)
[2023-07-01 15:17] LABS: Add Urine Culture? No; Bacteria Urine TRACE /hpf; Squamous Epithelial Cell Urine 0-4 /hpf (0-5); WBC Urine 0-4 /hpf (0-5)
--- NOTE | 2023-07-01 15:56 | ED_ITS ---
HPI - Abdominal Pain 2 General: Chief Complaint: Abdominal Pain Stated Complaint: abd pain Time Seen by Provider: 07/01/23 13:58 Source: patient Mode of arrival: ambulatory Limitations: no limitations History of Present Illness: 53-year-old female who states she has be en having diffuse abdominal pain over the last 2 days states pain has been severe in nature she rates it a 6 out of 10 currently she was seen in the last night at [facility] in [place] was able to review her patient portal she had a CT scan that showed no acute findings some thickening in her uterus ultrasound showed no acute findings any other discharge or she is getting follow-up with an OB but states she is continue to have pain denies any vomiting or diarrhea or fevers. Associated Symptoms: Denies chills, diarrhea, dysuria, fever(s), nausea and vomiting Review of Systems 2 Const: Denies: fever(s), chills, body aches or change in appetite Eyes: Denies: blurry vision or eye discomfort ENMT: Denies: throat pain or dental pain Card: Denies: chest pain Resp: Denies: dyspnea GI: Reports: abdominal pain; Denies: nausea, vomiting or diarrhea : Denies: dysuria Musc: Denies: neck pain or back pain Skin/Breast: Denies: rash Neuro: Denies: headache(s) PFSH ED 2 PFSH: Medical History Hypothyroidism Hypertension situational Chronic bilateral lower abdominal pain Mass of sinus followed by [facility] -- has surgical procedure planned Dec 2022. No significant past medical history neghx: htn,dm,thyroid,dvt/pe PCP: [facility] Surgical History No significant past surgical history Family History Denies family history of Diabetes CAD (coronary artery disease) Clotting disorder Family history of premature coronary artery disease Cancer Hypertension Stroke Social History Smoking and tobacco/nicotine status: current every day tobacco/nicotine user e- cigarettes E-Cigarette Details: with nicotine E-cig/vape details: 2.5 Alcohol intake: never Substance/Drug Use: never Physical Exam 2 Const: COMMON NORMALS: no acute distress, patient oriented x3 and healthy appearing HENMT: COMMON NORMALS: normocephalic and atraumatic HEAD & SCALP: n ormocephalic and atraumatic Eye: COMMON NORMALS: conjunctivae normal CONJUNCTIVA: Yes conjunctivae normal Neck/C-Spine: COMMON NORMALS: full ROM and supple Chest: COMMONS NORMALS: normal inspection of the chest Resp: COMMON NORMALS: normal respiratory effort Cardio: COMMON NORMALS: regular rate, regular rhythm and No murmurs present (Cardio) RATE: regular rate RHYTHM: regular rhythm GI: COMMON NORMALS: Normal to inspection, nondistended, normoactive bowel sounds present, Soft to palpation and no masses PALPATION: Yes Soft to palpation OTHER: Diffuse tenderness Extremity: COMMON NORMALS: normal to inspection and full ROM Neuro: COMMON NORMALS: patient oriented x3, moves all extremities and no focal motor deficits Psych: COMMON NORMALS: mental status grossly normal, Normal thought process present and cooperative THOUGHT PROCESS: Normal thought process present Skin: COMMON NORMALS: no rashes or lesions noted and no wounds GENERAL SKIN EXAM: no rashes or lesions noted Course 2 Vital Signs: Vital signs: Vital Signs Temperature 97.6 F 07/01/23 13:41 Pulse Rate 89 07/01/23 13:41 Respiratory Rate 16 07/01/23 13:41 Blood Pressure 134/91 07/01/23 13:41 Pulse Oximetry 96 07/01/23 13:41 Oxygen Delivery Me thod Room Air 07/01/23 13:41 MDM - Abdominal Pain Medical Decision Making Patient presents with abdominal pain has been chronic in nature she had a CT done yesterday that showed no acute findings ultrasound gallbladder here is normal she has follow-up with surgeon Dr. Richter next Wednesday we will place her on tramadol and dicyclomine. White count here is normal her abdominal exam is benign at discharge Medical Records I reviewed the patient's medical records. Lab Data I reviewed the patient's lab results. 07/01/23 14:28 07/01/23 14:28 Labs/Radiology: Laboratory Results WBC 7.44 10^3/uL (3.29-11.43) 07/01/23 14:28 RBC 4.28 10^6/uL (3.85-5.65) 07/01/23 14:28 Hgb 10.80 g/dL (11.27-16.99) L 07/01/23 14: Hct 34.1 % (36-47) L 07/01/23 14: MCV 79.7 fl (85-98) L 07/01/23 14:28 MCH 25.2 pg (27-33) L 07/01/23 14: MCHC 31.7 g/dL (30-55) 07/01/23 14: RDW 14.8 % (12.1-15.1) 07/01/23 14: Plt Count 357 10^3/cmm (157-399) 07/01/23 14: MPV 9.8 fL (7.4-10.4) 07/01/23 14: Neut % (Auto) 68.0 % 07/01/23 14: Lymph % (Auto) 22.3 % 07/01/23 14: [place] % (Auto) 7.1 % 07/01/23 14: Eos % (Auto) 1.1 % 07/01/23 14:28 Baso % (Auto) 1.2 % 07/01/23 14: Neut # (Auto) 5.06 10^3/uL (1.8-7.7) 07/01/23 14: Lymph # (Auto) 1.7 10^3/uL (0.8-4.8) 07/01/23 14: [place] # (Auto) 0.5 10^3/uL (0.2-0.9) 07/01/23 14: Eos # (Auto) 0.1 10^3/uL (0.0-0.8) 07/01/23 14: Baso # (Auto) 0.1 10^3/uL (0.0-0.1) 07/01/23 14: Nucleated RBC % (auto) 0 % 07/01/23 14: Nucleated RBCs # 0.0 /100WBC 07/01/23 14:28 Sodium 139 mmol/L (136-145) 07/01/23 14:28 Potassium 4.3 mmol/L (3.5-5.1) 07/01/23 14: Chloride 104 mmol/L (98-107) 07/01/23 14:28 Carbon Dioxide 23 mmol/L (22-29) 07/01/23 14:28 Anion Gap 16.3 (5-19) 07/01/23 14:28 BUN 12 mg/dL (6-20) 07/01/23 14:28 Creatinine 0.6 mg/dL (0.5-0.9) 07/01/23 14:28 GFR Calculation 105.0 mL/min (90-130) 07/01/23 14:28 Glucose 100 mg/dL (65-115) 07/01/23 14:28 Calculated Osmolality 288 mOsm/kg (285-295) 07/01/23 14:28 Calcium 8.7 mg/dL (8.5-10.5) 07/01/23 14:28 Total Bilirubin 0.2 mg/dL (0.15-1.2) 07/01/23 14:28 AST 12 U/L (0-32) 07/01/23 14:28 ALT 8 U/L (0-33) 07/01/23 14:28 Alkaline Phosphatase 55 U/L (35-105) 07/01/23 14:28 Total Protein 7.7 g/dL (6.6-8.7) 07/01/23 14:28 Albumin 4.2 g/dL (3.5-5.2) 07/01/23 14:28 Globulin 3.5 g/dL (1.3-4.6) 07/01/23 14:28 Lipase 35 U/L (13-60) 07/01/23 14:28 Urine Color Yellow (Yellow) 07/01/23 14:10 Urine Appearance Sl hazy (CLEAR) A 07/01/23 14:10 Urine pH 7 (5-7) 07/01/23 14:10 Ur Specific [place] 1.005 (1.005-1.030) 07/01/23 14:10 Urine Protein 1+ (Negative) H 07/01/23 14:10 Urine Glucose (UA) Norm (Normal) 07/01/23 14:10 Urine Ketones 1+ (Negative) H 07/01/23 14:10 Urine Blood Trace (Negative) H 07/01/23 14:10 Urine Nitrate Negative (Negative) 07/01/23 14:10 Urine Bilirubin Neg (Negative) 07/01/23 14:10 Urine Urobilinogen Norm mg/dL (Negative) 07/01/23 14:10 Ur Leukocyte Esterase Trace (Negative) H 07/01/23 14:10 Urine RBC None /hpf (0-2) 07/01/23 14:10 Urine WBC 0-4 /hpf (0-5) H 07/01/23 14:10 Ur Squamous Epith Cells 0-4 /hpf (0-5) H 07/01/23 14:10 Amorphous Sediment Not Reportable 07/01/23 14:10 Urine Bacteria Trace /hpf (NONE) 07/01/23 14:10 All radiology interpretation(s) finalized by discharge Discharge Plan Discharge Patient Disposition: Home Clinical Impression: Abdominal pain Condition: Stable Prescriptions: New ondansetron 4 mg tablet,disintegrating 4 mg PO Q6H PRN (Reason: nausea and vomiting) Qty: 14 0RF tramadol 50 mg tablet 50 mg PO Q8H PRN (Reason: pain) Qty: 14 0RF dicyclomine 20 mg tablet 20 mg PO TID PRN (Reason: abdominal pain) Qty: 20 0RF No Action estradiol [Estrace] 0.01 % (0.1 mg/gram) cream 1 g vaginal .2-3 times weekly Qty: 42.5 0RF Rx Instructions: space out doses Linzess 145 mcg capsule 145 mcg PO DAILY acetaminophen 325 mg Tablet 650 mg PO QID PRN (Reason: Pain) Prilosec 10 mg Capsule,Delayed Release(Dr/Ec) 10 mg PO DAILY PRN (Reason: Acid Reflux) ibuprofen 200 mg Tablet 600 mg PO Q6H PRN (Reason: Pain) Discharge Orders: Discharge ED (Routine); Ordered 07/01/23 Ordered By: Alayna Jackson Referrals: Og Richter MD [Physician] - 4-7 days Discharge Diet: Advance as tolerated Discharge Activity: Resume usual activity Patient Instructions: Abdominal Pain (ED) Coding Level of Care Code ED Trousseau Consultant for [facility] [place]
--- NOTE | 2023-07-01 15:58 | US_ITS ---
WS: [id number] RIGHT UPPER QUADRANT ULTRASOUND HISTORY: ruq pain COMPARISON: 03/30/2023 Liver: 13.3 cm in length. Poorly visualized. Portions of the liver which are visualized are normal. N o bile duct dilatation and no mass. Portal Vein: Normal hepatopetal flow with monophasic waveform. Gallbladder: Poorly visualized. A stone at the gallbladder neck cannot be completely excluded. CBD: 0.5 cm Pancreas: Not visualized. Right kidney: 10.1 cm in length. Normal size and echogenicity. No hydronephrosis or mass. Aorta and IVC: Unremarkable abdominal aorta and IVC. No ascites. IMPRESSION: 1. Technically difficult RIGHT upper quadrant evaluation. 2. There is shadowing in the gallbladder neck. A small stone is not excluded. No stones are identifi ed on the recent ultrasound of 03/30/2023. 3. Partially visualized liver and nonvisualization of the pancreas.
[2023-07-01] MEDS: TRAMadol 50 mg Tablet PO (17:01)
[2023-07-01 18:47] VITALS: BP 155/102; PULSE 65; O2SAT 94
== END 2023-07-01 18:49 | disposition home or self-care (01) ==
PROVIDERS: Emergency Provider Emergency Medicine
DX: R10.9 Unspecified abdominal pain (principal); I10 Essential (primary) hypertension; F17.290 Nicotine dependence, other tobacco product, uncomplicated
CPT/HCPCS: 36415; 76705; 80053; 81001; 83690; 85025; 99284

== ENCOUNTER → 2023-08-23 08:15 | Outpatient (BNVA) | payer BC, SELFPAY | PROVIDERS: Referring Provider Internal Medicine; Visit Provider Internal Medicine | DX: E03.9 Hypothyroidism, unspecified (principal); I10 Essential (primary) hypertension; Z79.899 Other long term (current) drug therapy | CPT/HCPCS: 83516; 84439; 84443; 84480; 86376; 86800 ==

== ENCOUNTER → 2023-09-09 09:49 | Outpatient (BNVA) | payer BC, SELFPAY | PROVIDERS: Visit Provider Orthopaedic Surgery | DX: M47.22 Other spondylosis with radiculopathy, cervical region (principal); M54.2 Cervicalgia | CPT/HCPCS: 72050 ==

== ENCOUNTER 2023-10-29 07:57 | Outpatient (CLI) | payer OTHER, SELFPAY ==
--- NOTE | 2023-10-29 08:00 | MR_ITS ---
WS: [id number] MRI CERVICAL SPINE NONCONTRAST TECHNIQUE: Sagittal T1, T2 and STIR imaging. Axial T2, gradient, and fiesta imaging. CLINICAL INFORMATION: neck pain COMPARISON: MRI 05/08/2022 FINDINGS: Straightening of the normal cervical lordosis. Disc osteophyte protrusion C5-C6 and C6-C7 with slight effacement of the ventral thecal sac. Disc osteophyte protrusions similar to previous. Shallow central protrusion T4-5. C2-C3: Normal. C3-C4: Mild facet arthropathy. Mild LEFT and no significant RIGHT foraminal narrowing. C4-C5: Mild disc bulging with endplate ridging. Mild facet arthropathy. Spinal canal and foramen are patent. C5-C6: Disc osteophyte complex with slight effacement of the ventral thecal sac. Mild bilateral mainor inal narrowing. Mild facet arthropathy with uncovertebral joint hypertrophy. C6-C7: Disc osteophyte complex with slight effacement of the thecal sac similar to previous. Mild LEF T and no significant RIGHT foraminal narrowing. Spinal canal is patent. C7-T1: Normal. Visualized brain stem structures: Normal. Prevertebral soft tissues: Normal. MR/MR cervical spin wo con* [id number] IMPRESSION: 1. Previously described material posterior to the LEFT C6 vertebral body not a s well seen today 2. Stable appearing disc osteophyte protrusion C5-C6 and C6-C7 with slight eff acement of the ventral thecal sac worse at C6-C7. 3. Mild bilateral foraminal narrowing C5-C6 and LEFT C6-C7. 4. Cord signal is normal. 5. No other significant changes. 6. Shallow central protrusion in the upper thoracic spine at T4-5
== END 2023-10-29 07:58 | disposition home or self-care (01) ==
LOC: RAD 07:58
PROVIDERS: PCP Family Medicine; Visit Provider Orthopaedic Surgery
DX: M54.2 Cervicalgia (principal); M47.22 Other spondylosis with radiculopathy, cervical region; M25.78 Osteophyte, vertebrae
CPT/HCPCS: 72141; 84439; 84443; 84480

== ENCOUNTER 2024-02-08 16:08 | Outpatient (CLI) | payer OTHER, SELFPAY ==
[2024-02-08 16:36] LABS: Basophils # 0.1 10^3/uL (0.0-0.1); Basophils % 1.2 %; Eosinophils # 0.2 10^3/uL (0.0-0.8); Eosinophils % 2.2 %; Lymphocytes % 29.8 %; Mean Corpuscular Hemoglobin 24.7 pg (27-33); Mean Corpuscular Volume 82.4 fl (85-98); Mean Platelet Volume 9.9 fL (7.4-10.4); Monocytes # 0.5 10^3/uL (0.2-0.9); Monocytes % 6.7 %; Nucleated Red Blood Cells % 0 %; Platelet Count 266 10^3/cmm (157-399); White Blood Count 6.84 10^3/uL (3.29-11.43)
[2024-02-08 16:40] LABS: Reticulocyte % 1.3 % (0.5-2.0)
[2024-02-08 18:01] LABS: Folate Level 6.7 ng/mL (4.8-37.3)
[2024-02-08 18:02] LABS: Ferritin 10 ng/mL (15-150); Follicle Stimulating Hormone 25.8 mIU/mL; Iron 35 ug/dL (37-145); Percent Saturation 9.5 % (20-50); Total Iron Binding Capacity 366 mcg/dl; Unsaturated Iron Binding 331 ug/dL (112-347); Vitamin B12 756 pg/mL (232-1245)
== END 2024-02-08 16:09 | disposition home or self-care (01) ==
LOC: LAB 16:10
PROVIDERS: Absent Provider Internal Medicine; Family Provider Nurse Practitioner Family; PCP Family Medicine; Visit Provider Internal Medicine
DX: N83.209 Unspecified ovarian cyst, unspecified side (principal); N89.8 Other specified noninflammatory disorders of vagina; N95.1 Menopausal and female climacteric states
CPT/HCPCS: 36415; 82607; 82728; 82746; 83001; 83540; 83550; 85025; 85045

== ENCOUNTER 2024-03-17 09:12 | Outpatient (CLI) | payer OTHER, SELFPAY ==
[2024-03-17 09:30] LABS: Basophils # 0.1 10^3/uL (0.0-0.1); Basophils % 0.9 %; Eosinophils # 0.1 10^3/uL (0.0-0.8); Eosinophils % 1.4 %; Hematocrit 41.3 % (36-47); Lymphocytes # 1.9 10^3/uL (0.8-4.8); Lymphocytes % 20.4 %; Mean Corpuscular HGB Conc 30.3 g/dL (30-55); Mean Corpuscular Hemoglobin 25.2 pg (27-33); Mean Corpuscular Volume 83.3 fl (85-98); Mean Platelet Volume 9.7 fL (7.4-10.4); Monocytes # 0.6 10^3/uL (0.2-0.9); Monocytes % 6.3 %; Neutrophils # 6.47 10^3/uL (1.8-7.7); Neutrophils % 70.7 %; Nucleated Red Blood Cells % 0 %; Platelet Count 261 10^3/cmm (157-399); Red Blood Count 4.96 10^6/uL (3.85-5.65); Red Cell Distribution Width 17.1 % (12.1-15.1); White Blood Count 9.16 10^3/uL (3.29-11.43)
[2024-03-17 09:47] LABS: Ferritin 9 ng/mL (15-150); Iron 43 ug/dL (37-145); Percent Saturation 11.6 % (20-50); Total Iron Binding Capacity 370 mcg/dl; Unsaturated Iron Binding 327 ug/dL (112-347)
== END 2024-03-17 09:13 | disposition home or self-care (01) ==
LOC: LAB 09:14
PROVIDERS: Absent Provider Internal Medicine; Family Provider Nurse Practitioner Family; PCP Family Medicine; Visit Provider Internal Medicine
DX: K59.00 Constipation, unspecified (principal)
CPT/HCPCS: 36415; 82728; 83540; 83550; 84439; 84443; 85025

== ENCOUNTER 2024-03-31 14:21 | Outpatient (CLI) | payer OTHER, SELFPAY ==
[2024-03-31 16:20] LABS: Follicle Stimulating Hormone 10.8 mIU/mL
== END 2024-03-31 14:22 | disposition home or self-care (01) ==
LOC: LAB 14:23
PROVIDERS: Family Provider Nurse Practitioner Family; PCP Family Medicine; Visit Provider Nurse Practitioner Family
DX: R19.00 Intra-abdominal and pelvic swelling, mass and lump, unspecified site (principal)
CPT/HCPCS: 36415; 83001

== ENCOUNTER 2024-04-28 11:44 | Outpatient (CLI) | payer OTHER, SELFPAY ==
[2024-04-28 12:31] LABS: Free T4 Free Thyroxine 1.01 ng/dL (0.82-1.77); Thyroid Stimulating Hormone 9.36 uIU/mL (0.27-4.20)
== END 2024-04-28 11:45 | disposition home or self-care (01) ==
LOC: LAB 11:46
PROVIDERS: Family Provider Nurse Practitioner Family; PCP Family Medicine; Visit Provider Internal Medicine
DX: E03.9 Hypothyroidism, unspecified (principal)
CPT/HCPCS: 36415; 84439; 84443

== ENCOUNTER 2024-05-26 13:35 | Outpatient (CLI) | payer OTHER, SELFPAY ==
[2024-05-26 14:30] LABS: Basophils # 0.1 10^3/uL (0.0-0.1); Basophils % 1.1 %; Eosinophils # 0.1 10^3/uL (0.0-0.8); Eosinophils % 1.7 %; Lymphocytes # 1.9 10^3/uL (0.8-4.8); Mean Corpuscular HGB Conc 32.8 g/dL (30-55); Mean Corpuscular Hemoglobin 28.4 pg (27-33); Mean Corpuscular Volume 86.5 fl (85-98); Mean Platelet Volume 9.8 fL (7.4-10.4); Monocytes # 0.5 10^3/uL (0.2-0.9); Monocytes % 6.7 %; Neutrophils # 4.51 10^3/uL (1.8-7.7); Neutrophils % 63.2 %; Nucleated Red Blood Cells % 0 %; Platelet Count 247 10^3/cmm (157-399); Red Blood Count 4.97 10^6/uL (3.85-5.65); Red Cell Distribution Width 17.1 % (12.1-15.1); Reticulocyte % 1.5 % (0.5-2.0); White Blood Count 7.14 10^3/uL (3.29-11.43)
[2024-05-26 14:49] LABS: Ferritin 8 ng/mL (15-150); Iron 64 ug/dL (37-145); Percent Saturation 20.9 % (20-50); Total Iron Binding Capacity 306 mcg/dl; Unsaturated Iron Binding 242 ug/dL (112-347)
[2024-05-26 15:06] LABS: Vitamin B12 841 pg/mL (232-1245)
[2024-05-26 15:37] LABS: Folate Level 10.9 ng/mL (4.8-37.3)
== END 2024-05-26 13:36 | disposition home or self-care (01) ==
PROVIDERS: Family Provider Nurse Practitioner Family; PCP Family Medicine; Visit Provider Family Medicine
DX: D64.9 Anemia, unspecified (principal)
CPT/HCPCS: 36415; 82607; 82728; 82746; 83540; 83550; 85025; 85045

== ENCOUNTER → 2024-08-18 13:47 | Outpatient (BNVA) | payer OTHER, SELFPAY | PROVIDERS: Family Provider Nurse Practitioner Family; PCP Family Medicine; Visit Provider Internal Medicine | DX: E03.9 Hypothyroidism, unspecified (principal); R63.5 Abnormal weight gain | CPT/HCPCS: 84439; 84443; 84480 ==

== ENCOUNTER 2024-10-24 05:00 | Outpatient (RCR) | payer OTHER, SELFPAY | END 2024-11-23 23:59 | disposition home or self-care (01) | LOC: APT 05:00 | PROVIDERS: Visit Provider Orthopaedic Surgery | DX: M54.50 Low back pain, unspecified (principal) | CPT/HCPCS: 97161 ==

== ENCOUNTER → 2024-10-26 11:11 | Outpatient (BNVA) | payer OTHER, SELFPAY | PROVIDERS: PCP Family Medicine; Visit Provider Orthopaedic Surgery | DX: M54.2 Cervicalgia (principal); M19.011 Primary osteoarthritis, right shoulder | CPT/HCPCS: 72050; 72110; 73030 ==

== ENCOUNTER 2024-11-10 11:03 | Outpatient (CLI) | payer OTHER, SELFPAY ==
[2024-11-10 12:09] LABS: Free T4 Free Thyroxine 0.59 ng/dL (0.82-1.77); Thyroid Stimulating Hormone 18.33 uIU/mL (0.27-4.20)
== END 2024-11-10 11:04 | disposition home or self-care (01) ==
PROVIDERS: PCP Family Medicine; Visit Provider Internal Medicine
DX: E03.9 Hypothyroidism, unspecified (principal); R63.5 Abnormal weight gain
CPT/HCPCS: 36415; 84439; 84443; 84480

== ENCOUNTER 2024-12-22 11:44 | Outpatient (CLI) | payer OTHER, SELFPAY ==
--- NOTE | 2024-12-22 12:15 | MR_ITS ---
WS: [id number] MRI RIGHT SHOULDER HISTORY: pain in right shoulder COMPARISON: 10/26/2024 TECHNIQUE: Multiplanar sequences of the shoulder joint are submitted. Moderate AC joint arthropathy. Fluid along the AC joint with mild hypertrophic bone formation. Mild impingement upon the supraspinatus tendon and muscle. Small enthesopathy distal undersurface of the acromion with mild impingement. No os acromion. Normal position of the biceps tendon in the bicipital groove. Normal glenohumeral joint alignment. No rotator cuff muscle atrophy or edema. There is a very small, 2 mm tear along the bursal surface of the distal supraspinatus tendon. The tear is just distal to the subacromial impingement. Moderate distal supraspinatus tendinopathy. No additional tendon tears. No labral tear. MR/MR shoulder RT wo con* [id number] IMPRESSION: 1. Moderate AC joint arthropathy with mild osteophyte encroachment upon the ambriz praspinatus tendon and muscle. 2. Mild subacromial impingement. 3. Very tiny distal supraspinatus tendon tear along the bursal surface. Tear i s just distal to the subacromial impingement. 4. Additional moderate supraspinatus tendinopathy.
== END 2024-12-22 11:45 | disposition home or self-care (01) ==
LOC: RAD 11:45
PROVIDERS: Family Provider Nurse Practitioner Family; PCP Family Medicine; Visit Provider Orthopaedic Surgery
DX: M19.011 Primary osteoarthritis, right shoulder (principal); M25.711 Osteophyte, right shoulder; M75.41 Impingement syndrome of right shoulder; M67.813 Other specified disorders of tendon, right shoulder
CPT/HCPCS: 73221

== ENCOUNTER 2025-02-09 12:10 | Outpatient (CLI) | payer OTHER, SELFPAY ==
[2025-02-09 13:20] LABS: Free T4 Free Thyroxine 0.54 ng/dL (0.82-1.77); Thyroid Stimulating Hormone 44.98 uIU/mL (0.27-4.20)
== END 2025-02-09 12:11 | disposition home or self-care (01) ==
PROVIDERS: Visit Provider Internal Medicine
DX: R63.5 Abnormal weight gain (principal); E03.9 Hypothyroidism, unspecified
CPT/HCPCS: 36415; 84439; 84443; 84480

== ENCOUNTER 2025-02-12 09:52 | Outpatient (RCR) | payer OTHER, SELFPAY | END 2025-02-23 23:59 | disposition home or self-care (01) | LOC: APT 09:52 | PROVIDERS: Visit Provider Orthopaedic Surgery | DX: M25.511 Pain in right shoulder (principal); G89.29 Other chronic pain | CPT/HCPCS: 97161 ==

== ENCOUNTER → 2025-03-08 11:00 | Outpatient (BNVA) | payer OTHER, SELFPAY | PROVIDERS: Visit Provider Obstetrics & Gynecology | DX: Z01.419 Encounter for gynecological examination (general) (routine) without abnormal findings (principal) | CPT/HCPCS: 87624 ==

== ENCOUNTER 2025-03-30 11:18 | Outpatient (CLI) | payer OTHER, SELFPAY ==
--- NOTE | 2025-03-30 11:20 | MM_ITS ---
WS: [id number] BILATERAL 3D TOMOSYNTHESIS DIGITAL SCREENING MAMMOGRAPHY WITH CAD CLINICAL INFORMATION: Z12.39 - Encounter for other screening for malignant neop... HISTORY: Screening mammogram. No current complaints. COMPARISON: 2022 TECHNIQUE: Bilateral CC and MLO views. FINDINGS: Scattered fibroglandular densities bilaterally. Asymmetric density upper outer LEFT breast. Recommend LEFT breast diagnostic mammography and ultrasound if persistent. Unremarkable RIGHT breast MM/MM scr BI tomosynthesis [id number] IMPRESSION: DENSITY: There are scattered areas of fibroglandular density. BI-RADS: 0 - Incomplete: Need additional imaging evaluation. FOLLOW UP: Need Additional Imaging Recommend LEFT breast diagnostic mammography and ultrasound if persistent.
== END 2025-03-30 11:19 | disposition home or self-care (01) ==
LOC: RAD 11:19
PROVIDERS: Visit Provider Obstetrics & Gynecology
DX: Z12.31 Encounter for screening mammogram for malignant neoplasm of breast (principal); R92.323 Mammographic fibroglandular density, bilateral breasts; N64.89 Other specified disorders of breast
CPT/HCPCS: 77063; 77067